=== PATIENT | female | born 1980 | race Caucasian/White ===

== ENCOUNTER 2020-05-26 09:50 | Outpatient (CLI) | payer OTHER, SELFPAY ==
--- NOTE | ~2020-05-26 | MM_ITS ---
EXAMINATION: MM screening kiana BI w kiersten HISTORY: Screening TECHNIQUE: Craniocaudal and mediolateral oblique 3-D tomosynthesis images were obtained and synthetic 2-D images were generated. CAD analysis was submitted and interpreted. COMPARISON: No prior mammogram is available for comparison at this institution. BREAST PARENCHYMAL COMPOSITION: The breasts are heterogenously dense, which may obscure small masses. FINDINGS: There are bilateral breast asymmetries. There are no suspicious calcifications or architectural technician ural distortion. IMPRESSION: 1. Bilateral breast asymmetries. 2. Additional mammographic views and possible breast ultrasound are recommended. BI-RADS Category 0: Incomplete: Needs additional imaging evaluation. Reviewed, dictated and finalized at location A. IMPRESSION: 1. Bilateral breast asymmetries. 2. Additional mammographic views and possible breast ultrasound are recommended . BI-RADS Category 0: Incomplete: Needs additional imaging evaluation.
== END 2020-05-26 09:51 | disposition home or self-care (01) ==
DX: Z12.31 Encounter for screening mammogram for malignant neoplasm of breast (principal)
CPT/HCPCS: 77063; 77067

== ENCOUNTER 2020-06-25 09:55 | Outpatient (CLI) | payer OTHER, SELFPAY ==
--- NOTE | ~2020-06-25 | MM_ITS ---
EXAMINATION: MM diagnostic kiana BI w kiersten HISTORY: Follow-up bilateral breast asymmetries TECHNIQUE: Additional 3-D tomosynthesis images of the breasts were performed and synthetic 2-D images were generated. CAD analysis was submitted and interpreted. High resolution bilateral complete breas t ultrasound was performed. COMPARISON: 05/26/2020 BREAST PARENCHYMAL COMPOSITION: The breasts are heterogenously dense, which may obscure small masses. FINDINGS: MAMMOGRAPHIC FINDINGS: There are no suspicious masses, calcifications or architectural distortion in either breast to sugges t malignancy. ULTRASOUND: Right breast ultrasound: At 10:00, 3 cm from the nipple, there is an oval hypoechoic mass with slightly irregular margins and internal echoes measuring 5 mm maximum dimension. No posterior features or internal vascularity. At 1 1:00, 2 cm from the nipple, there is an oval hypoechoic 5 mm mass without internal vascularity or pos terior features. In the subareolar location the right breast there is an oval hypoechoic mass measuri ng 6 mm with slightly irregular margins, no internal vascularity or posterior features. Left breast ultrasound: Oval hypoechoic mass at 3:00, 3 cm from the nipple measuring 4 mm with parallel orientation measuring 5 mm maximum dimension. No internal vascularity or posterior features. At 6:00, 4 cm from the nipple is a cluster of small cysts measuring 3 mm or less. At 2:00, 5 cm from the nipple, there is an oval hypoechoic mass measuring 3 mm with posterior acoustic enhancement. No internal vascularity. IMPRESSION: 1. Probable benign bilateral breast masses. 2. Recommend 6 month follow-up bilateral breast ultrasound BI-RADS Category 0: Incomplete: Needs additional imaging evaluation. Reviewed, dictated and finalized at location A.
--- NOTE | ~2020-06-25 | US_ITS ---
Please refer to diagnostic mammogram report dated 06/25/2020 for details. Reviewed, dictated and finalized at location A.
== END 2020-06-25 09:56 | disposition home or self-care (01) ==
DX: R92.2 Inconclusive mammogram (principal)
CPT/HCPCS: 76641; 77062; 77066; G0279

== ENCOUNTER 2020-07-14 06:54 | Outpatient (CLI) | payer OTHER, SELFPAY ==
--- NOTE | ~2020-07-14 | MR_ITS ---
EXAMINATION: foot LT wo con DATE: 07/14/2020 08:09 INDICATION: Erythema pain and swelling at the left great toe post injury 4 months prior. Abnormal x-r ay. TECHNIQUE: Magnetic resonance imaging (MRI) of the left fore/mid foot was performed without intraveno us contrast. Sequences included sagittal T1-weighted FSE, sagittal fluid sensitive FSE STIR, coronal PD-weighted FS FSE, coronal T1-weighted FSE, axial PD-weighted FS FSE, and axial PD-weighted FSE. COMPARISON: None FINDINGS: Bone alignment is normal. No fracture. Normal marrow signal with no reactive edema, osteonecrosis or other pathologic marrow replacing process. The Lisfranc ligament and the collateral ligament complexe s at the metatarsophalangeal and interphalangeal joints are normal. The visualized portions of the fl exor and extensor tendons are normal. Normal small sesamoid bone is seen plantar to the first interph alangeal joint at the distal aspect of the flexor hallucis longus tendon. No abnormal signal to sugge st sesamoiditis. Mild osteoarthritis at the first metatarsophalangeal joint and at the second, third and fourth tarsal metatarsal joints. No joint effusions or other abnormal fluid collections. Soft tis sues are unremarkable with no edema or asymmetric muscular atrophy. IMPRESSION: 1. 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 No fractu re, osteomyelitis or other etiology identified for reported pain and swelling at the left great toe. Reviewed, dictated and finalized at location B. IMPRESSION: 1. Mild osteoarthritis at the first metatarsophalangeal and a few tarsal metata rsal joints. No fracture, osteomyelitis or other etiology identified for report ed pain and swelling at the left great toe.
== END 2020-07-14 06:55 | disposition home or self-care (01) ==
DX: R93.89 Abnormal findings on diagnostic imaging of other specified body structures (principal)
CPT/HCPCS: 73718

== ENCOUNTER 2021-02-11 09:46 | Outpatient (CLI) | payer OTHER, SELFPAY ==
--- NOTE | ~2021-02-11 | MMUS_ITS ---
EXAMINATION: MM diagnostic kiana BI w kiersten, US breast BI limited HISTORY: Six-month follow-up of probable benign bilateral breast masses TECHNIQUE: ML, MLO and craniocaudal full field and spot 3-D tomosynthesis images of both breasts were performed and synthetic 2-D images were generated. CAD analysis was submitted and interpreted. High resolution limited bilateral follow-up breast ultrasound was performed. COMPARISON: 06/25/2020 bilateral diagnostic digital mammogram and bilateral complete breast ultrasound examination 05/26/2020 bilateral digital screening mammogram BREAST PARENCHYMAL COMPOSITION: There are scattered areas of fibroglandular density. FINDINGS: MAMMOGRAPHIC FINDINGS: No interval suspicious mass or architectural distortion or significant new or developing density or a ny malignant calcification, skin thickening or retraction of either breast is evident. ULTRASOUND: Right breast: 10:00 3 cm from nipple: Hypoechoic 3.6 x 6.3 x 4.6 mm parallel circumscribed lesion without internal vascularity or posterior shadowing 11:00 2 cm from nipple: Parallel circumscribed hypoechoic 1.8 x 2.8 x 3.3 mm lesion without suspiciou s shadowing Subareolar area: 2.8 x 2.6 x 3.1 mm hypoechoic area without internal vascularity or posterior shadowi ng Left breast: 2:00 5 cm from nipple: 2.4 x 3 x 3.3 mm hypoechoic lesion without internal vascularity or posterior s hadowing 3:00 3 cm from nipple: Parallel circumscribed hypoechoic 2.7 x 4 x 4.2 mm lesion without internal vas cularity or posterior shadowing 6:00 4 cm from nipple: Septated 3 x 3.6 x 4.2 mm cyst without internal vascularity or posterior shado wing 8:00 3 cm from nipple: 3 x 2 x 1.7 mm cyst IMPRESSION: 1. No mammographic evidence of malignancy or significant change since 07/05/2020 2. Routine annual mammographic screening is recommended. BI-RADS Category 2: Benign finding(s). Reviewed, dictated and finalized at location A. IMPRESSION: 1. No mammographic evidence of malignancy or significant change since 0 2. Routine annual mammographic screening is recommended. BI-RADS Category 2: Benign finding(s).
== END 2021-02-11 09:47 | disposition home or self-care (01) ==
LOC: CHSIMG 09:48
PROVIDERS: PCP Family Medicine
DX: R92.2 Inconclusive mammogram (principal)
CPT/HCPCS: 76642; 77062; 77066; G0279

== ENCOUNTER 2021-03-10 07:43 | Outpatient (CLI) | payer OTHER, SELFPAY ==
--- NOTE | ~2021-03-10 | CT_ITS ---
EXAMINATION: CT soft tissue neck w con DATE: 03/10/2021 08:17 INDICATION: Lymphadenopathy of the head and neck. TECHNIQUE: Computed tomography (CT) of the neck was performed with 75 mL Omnipaque-350 intravenous co ntrast. Automated exposure control and iterative reconstruction technique were employed. The dose-margarito gth product was 359.09 mGy-cm. COMPARISON: None FINDINGS: There is a 2.8 x 2.5 cm right mid internal jugular chain lymph node. A skin marker overlies this area. The pharyngeal mucosal space is unremarkable. There is no visible plaque in the proximal internal carotid arteries. There is mild cervical spondylosis. IMPRESSION: 1. Enlarged right mid internal jugular chain lymph node suspicious for metastatic disease or lymphoma . Ultrasound-guided core needle biopsy is recommended. Reviewed, dictated and finalized at location A. IMPRESSION: 1. Enlarged right mid internal jugular chain lymph node suspicious for metastat ic disease or lymphoma. Ultrasound-guided core needle biopsy is recommended.
== END 2021-03-10 07:44 | disposition home or self-care (01) ==
LOC: CHSIMG 07:44
PROVIDERS: PCP Family Medicine; Visit Provider Family Medicine
DX: R59.1 Generalized enlarged lymph nodes (principal)
CPT/HCPCS: 70491; Q9967

== ENCOUNTER 2021-06-13 07:57 | Outpatient (RCR) | payer OTHER, SELFPAY ==
--- NOTE | 2021-06-13 09:06 | PTOPEVAL ---
Thank you for referring Marianna Bernal to [facility].? The patient is scheduled to be seen for therapy? ____x/week for ___ weeks. Please review, sign, date and return this plan of care JENAE. I agree with and certify that the following plan of care is medically necessary. Referring Physician Date Admitting Provider: Attending Provider: Kamran Jacobo, MD Referring Provider: *PT Outpatient Evaluation Start: 06/13/21 08:11 Freq: Status: Active Protocol: Document 06/13/21 08:10 [facility] (Rec: 06/13/21 08:59 [facility] [id number]) Therapy Assessment Status Assessment Status Assessment Status Evaluation Evaluation Information Problem Diagnosis R shoulder pain, neck pain Onset 04/22/21 Additional Evaluation Detail quick dash = 56% functionally declined NDI = 28% functionally declined Subjective Information patient reports she has had Query Text:As Reported By Patient/ pain in the R shoulder and Family neck since her surgery on 03/07. 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 she reports the tumor was 1in. she reports the tumor is benign. she reports since her surgery, she has pain moving the R arm away from her body and decreased ability to reach above shoulder level. she reports during surgery she was laying on her L side. she reports she is unable to put her hair in a ponytail, put a shirt on and off, reaching up into a cabinet, and vaccuming. 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 Prior Level of Function Comments Additional Prior Level of Function she reports prior to surgery, Comments she was having no issues with the R side neck and the shoulder. Pain Assessment Timing of Pain Assessment Timing of Pain Assessment Assessment Pain Scale Pain Scale Used Numeric (1 - 10) Self Report Pain Assessment Right Shoulder(s) Reported Pain Level 1 Pain Description Dull Pain Frequency Acute,Continuous Greatest Pain Intensity 7 Pain Score Pain Score 1: Self Report Interventio
--- NOTE | 2021-07-12 09:12 | PTOPEVAL ---
Thank you for referring Marianna Bernal to [facility].? The patient is scheduled to be seen for therapy? ____x/week for ___ weeks. Please review, sign, date and return this plan of care JENAE. I agree with and certify that the following plan of care is medically necessary. Referring Physician Date Admitting Provider: Attending Provider: Kamran Jacobo, MD Referring Provider: *PT Outpatient Evaluation Start: 06/13/21 08:11 Freq: Status: Active Protocol: Document 07/12/21 08:10 [facility] (Rec: 07/12/21 09:10 [facility] [id number]) Therapy Assessment Status Assessment Status Assessment Status Re-evaluation Evaluation Information Problem Diagnosis R shoulder pain, neck pain Onset 04/22/21 Additional Evaluation Detail quick dash = 47% functionally declined Subjective Information patient reports she feels her Query Text:As Reported By Patient/ pain is coming from the knot Family in her R shoulder. she reports she has been evaluated by a few different doctors who have concluded no similarities of this issue to her previous issue with her benign tumor. she reports she is unable to put much weight through her R arm to get out of a chair, and lifting up overhead/over shoulder level is painful. Pain Assessment Timing of Pain Assessment Timing of Pain Assessment Assessment Pain Scale Pain Scale Used Numeric (1 - 10) Self Report Pain Assessment Right Shoulder(s) Reported Pain Level 3 Greatest Pain Intensity 7 Pain Score Pain Score 3: Self Report Interventions Used Interventions Used By Clinicians Activity or ADL's,Education, Exercise Upper Extremity Range of Motion Scapular/ Shoulder Range of Motion Right Shoulder Flexion - Active 128 Shoulder Flexion - Passive 165 Shoulder Medial Rotation - Active 75 Shoulder Lateral Rotation - Active 100 Upper Extremity Muscle Strength Testing Scapular/Shoulder Right Shoulder Flexion Strength 3+ Fair + Shoulder Abduction Strength 3+ Fair + Shoulder Medial Rotation Strength 4 Good Shoulder Lateral Rotation Strength 3+ Fair + Palpation Assessment Palpation Palpation patient presents with palpable superior angle of the R scapular. she reports pain in this area with palpation.
--- NOTE | 2021-08-09 15:00 | PCPTNOTE ---
Addendum entered by BISHOP Leslie, PT 08/09/21 15:03: as of this date, she will be dc'd from skilled PT and all progress towards goals will be taken from her most recent evaluation/note. JOZEF Original Note: 08/09/21 - patient has not been to therapy in several weeks. as of this date, all progress towards goals will be taken from her most recent evaluation/note. JOZEF
== END 2021-07-12 09:02 | disposition home or self-care (01) ==
LOC: CHSPT 07:57
PROVIDERS: PCP Family Medicine; Visit Provider Otolaryngology
DX: M25.511 Pain in right shoulder (principal); G89.29 Other chronic pain; M54.2 Cervicalgia
CPT/HCPCS: 97014; 97110; 97140; 97161; G0283

== ENCOUNTER 2022-02-14 08:33 | Outpatient (CLI) | payer OTHER, SELFPAY ==
--- NOTE | ~2022-02-14 | MM_ITS ---
EXAMINATION: MM screening kiana BI w kiersten HISTORY: Screening mammogram TECHNIQUE: Craniocaudal and mediolateral oblique 3-D tomosynthesis images were obtained and synthetic 2-D images were generated. CAD analysis was submitted and interpreted. COMPARISON: 02/11/2021 bilateral diagnostic mammogram and Limited bilateral breast ultrasound 06/25/2020 bilateral diagnostic mammography and bilateral complete breast ultrasound 05/26/2020 bilateral screening mammogram BREAST PARENCHYMAL COMPOSITION: There are scattered areas of fibroglandular density. FINDINGS: There is no evidence of suspicious mass, calcification, or architectural distortion to sugg est malignancy in either breast. There has been no suspicious interval change. IMPRESSION: 1. No mammographic evidence of malignancy. 2. Recommend routine screening mammography in one year. BI-RADS Category 1: Negative Reviewed, dictated and finalized at location A.
== END 2022-02-14 08:34 | disposition home or self-care (01) ==
LOC: CHSIMG 08:36
PROVIDERS: PCP Family Medicine; Visit Provider Obstetrics & Gynecology
DX: Z12.31 Encounter for screening mammogram for malignant neoplasm of breast (principal)
CPT/HCPCS: 77063; 77067

== ENCOUNTER 2022-07-05 16:42 | Outpatient (CLI) | payer OTHER, SELFPAY ==
[2022-07-05 17:02] LABS: Basophils Absolute Auto 0.07 K/mm3 (0.00-0.10); Basophils Percent Auto 1.1 % (0.0-1.0); Eosinophils Absolute Auto 0.11 K/mm3 (0.02-0.50); Eosinophils Percent Auto 1.8 % (1.0-6.0); Immature Granulocyte Absolute 0.02 K/mm3 (0.00-0.00); Immature Granulocyte Percent A 0.3 % (0.0-0.0); Lymphocytes Absolute Auto 1.93 K/mm3 (1.10-4.50); Lymphocytes Percent Auto 31.3 % (18.0-42.0); Mean Corpuscular HGB Conc 33.3 g/dL (32.0-36.0); Mean Corpuscular Hemoglobin 30.8 pg (27.0-31.0); Mean Corpuscular Volume 92.4 fL (78.0-102.0); Mean Platelet Volume 9.2 fl (9.2-11.8); Monocytes Absolute Auto 0.39 K/mm3 (0.10-0.90); Monocytes Percent Auto 6.3 % (2.0-11.0); Neutrophils Absolute Auto 3.6 K/mm3 (1.7-7.2); Neutrophils Percent Auto 59.2 % (50.0-70.0); Platelet Count Result 437 K/mm3 (150-420); Red Blood Count 4.22 M/mm3 (4.20-5.40); Red Cell Distribution Width 12.5 % (11.6-14.4); White Blood Count 6.2 K/mm3 (4.8-10.8)
[2022-07-05 17:20] LABS: INR 0.9; Partial Thromboplastin Time 26.7 SEC (23.90-30.70); Prothrombin Time 10.4 Seconds (9.50-12.10)
[2022-07-05 17:39] LABS: Alanine Aminotransferase 15 U/L (14-59); Albumin Level 3.7 g/dL (3.4-5.0); Alkaline Phosphatase 54 U/L (46-116); Anion Gap 10 mmol/L (8-16); Aspartate Amino Transferase 13 U/L (15-37); Bilirubin,Total 0.2 mg/dL (0.00-1.00); Blood Urea Nitrogen 26 mg/dL (7-18); Calcium 8.8 mg/dL (8.5-10.1); Carbon Dioxide 26 mmol/L (21-32); Chloride 103 mmol/L (98-108); Estimated Glomerular Filt Rate 48; Glucose 99 mg/dL (70-99); Osmolality Calculated 292 mOsm/kg (285-295); Sodium 139 mmol/L (136-145); Total Protein 7.8 g/dL (6.4-8.2)
== END 2022-07-05 16:43 | disposition home or self-care (01) ==
LOC: CHSLAB 16:46
PROVIDERS: PCP Family Medicine
DX: R22.1 Localized swelling, mass and lump, neck (principal)
CPT/HCPCS: 36415; 80053; 85025; 85610; 85730

== ENCOUNTER 2023-11-08 16:02 | Outpatient (RCR) | payer OTHER, SELFPAY ==
--- NOTE | 2023-11-01 17:55 | PCPTNOTE ---
11/01/23: Pt cancelled initial eval due to being sick. -Kamilla Churchill, PT
--- NOTE | 2023-11-08 17:17 | OPREHPOC ---
Outpatient Therapy Plan of Care This is a Multidisciplinary Plan of Care that may contain components documented by all disciplines (PT, OT, and ST.) PT Problem 1 PT Problem #1 Knowledge Deficit PT Goal 1 Goal Patient to demonstrate independence with HEP Target Visit 3 PT Problem 2 PT Problem #2 Pain PT Goal 1 Goal Patient to report highest pain at 2/10 Target Visit 6 PT Problem 3 PT Problem #3 Impaired Range of Motion PT Goal 1 Goal Patient to demonstrate ability to reach to 160 deg of flexion and ability to reach to bra line to return to dressing at PLOF Target Visit 6 PT Problem 4 PT Problem #4 Impaired Strength PT Goal 1 Goal Patient to demonstrate 5/5 strength of the L shoulder to return to house hold tasks at PLOF Target Visit 6 PT Problem 5 PT Problem #5 Impaired Functional Mobil PT Goal 1 Goal 1. patient to report ability to dress with no increase in pain 2. patient to demonstrate less than 20% on Quick Dash Target Visit 6
--- NOTE | 2023-11-08 17:17 | PTOPEVAL1 ---
Assessment and note entered by Sarahi Liu DPT Evaluation Information Assessment Status Evaluation Diagnosis L shoulder pain Onset 10/30/23 Subjective Information Patient reports in June she had an onset of L shoulder pain with no injury. She had an injection in Sep that gave relief for a few weeks but pain returned. She then had another injection on and reports she feels a little bit better. She had an x-ray that showed AC joint degeneration and MD told her he does not think it is a large tear. Patient reports reaching behind her back to put her bra, putting on her coat and reaching across her body all increase her pain. She reports pain is at the lateral shoulder. 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 She denies previous shoulder pain. Reported Pain Level Pain Score 0: Self Report Assessment PT Clinical Summary Mrs. Bernal is a 42 year old female who presents to PT with L shoulder pain. Patient demonstrates decreased L shoulder ROM, decreased L shoulder strength, and tenderness to the posterior RTC impairing her ability to dress, reach across her body and complete house hold tasks. She would benefit from skilled PT to address impairments and return to PLOF. Plan of Care Interventions Electrical Stimulation,Hot Pack/Cold Pack,Manual Therapy,Neuro Re-education,Patient/Caregiver Educati,Therapeutic Activities,Therapeutic Exercise PT Services Indicated Yes Treatment Frequency and 1x weekly for 6 visits Duration These treatments will address the objective and functional deficits as defined above. The patient will be advanced safely and appropriately in order for the patient to progress towards his/her prior level of function. Additional exercises will be introduced and as well as a comprehensive home exercise program upon discharge, if needed, ?to ensure carryover of functional gains achieved in the clinic. This treatment plan has been reviewed and agreement upon by the patient.
[2024-01-25 08:00] VITALS: BP_SYST 75
--- NOTE | 2024-01-25 09:16 | OPREHPOC ---
Outpatient Therapy Plan of Care This is a Multidisciplinary Plan of Care that may contain components documented by all disciplines (PT, OT, and ST.) PT Problem 1 PT Problem #1 Knowledge Deficit PT Goal 1 Goal Patient to demonstrate independence with HEP Target Visit 6 PT Problem 2 PT Problem #2 Pain PT Goal 1 Goal Patient to report highest pain at 2/10 Target Visit 8 PT Problem 3 PT Problem #3 Impaired Range of Motion PT Goal 1 Goal Patient to demonstrate ability to reach to 160 deg of flexion and ability to reach to bra line to return to dressing at PLOF Target Visit 8 PT Problem 4 PT Problem #4 Impaired Strength PT Goal 1 Goal Patient to demonstrate 5/5 strength of the L shoulder to return to house hold tasks at PLOF Target Visit 8 PT Problem 5 PT Problem #5 Impaired Functional Mobil PT Goal 1 Goal 1. patient to report ability to dress with no increase in pain 2. patient to demonstrate less than 20% on Quick Dash Target Visit 8
--- NOTE | 2024-01-25 09:16 | PTOPREEVAL ---
Assessment and note entered by JT File, PT Evaluation Information Assessment Status Re-evaluation Diagnosis L shoulder pain Onset 10/30/23 Subjective Information patient has been away from skilled PT for about 50 days. she reports she had an MRI of the L shoulder. MRI report shows tendinopathy and micro tearing of the supraspinatus mm. she has gotten a 2nd opinion from Dr. Ingram who believes she is suffering from a frozen shoulder. she had an injection to the L shoulder and does feel better since. she reports she follows up with Dr. Ingram on February 20. Reported Pain Level Pain Score 2: Self Report Assessment PT Clinical Summary mrs. carlson returns to skilled PT for continued treatment of the L shoulder. she has been away for a bit of time getting an MRI and 2nd opinion. she presents now with a diagnosis of tendinopathy and frozen shoulder. she displays decreased L shoulder rom, strength, and has pain with all movement. she would benefit from continued skilled PT to address her objective/functional deficits to return to her prior level functional activity performance and quality of life. she is limited by availability to attend skilled PT through the week, and will only be able to attend 1x weekly. Plan of Care Interventions Electrical Stimulation,Hot Pack/Cold Pack,Manual Therapy,Neuro Re-education,Patient/Caregiver Educati,Therapeutic Activities,Therapeutic Exercise PT Services Indicated Yes Treatment Frequency and continue skilled PT 1x weekly for 4 more visits (8 Duration total) These treatments will address the objective and functional deficits as defined above. The patient will be advanced safely and appropriately in order for the patient to progress towards his/her prior level of function. Additional exercises will be introduced and as well as a comprehensive home exercise program upon discharge, if needed, ?to ensure carryover of functional gains achieved in the clinic. This treatment plan has been reviewed and agreement upon by the patient.
== END 2024-02-04 08:02 | disposition still patient (30) ==
LOC: CHSPT 16:02
PROVIDERS: Visit Provider Orthopaedic Surgery
DX: M75.82 Other shoulder lesions, left shoulder (principal)
CPT/HCPCS: 97014; 97110; 97140; 97161; G0283

== ENCOUNTER 2024-02-12 08:06 | Outpatient (RCR) | payer OTHER, SELFPAY ==
[2024-02-12 08:03] VITALS: BP_SYST 75
--- NOTE | 2024-02-19 12:59 | OPREHPOC ---
Outpatient Therapy Plan of Care This is a Multidisciplinary Plan of Care that may contain components documented by all disciplines (PT, OT, and ST.) PT Problem 1 PT Problem #1 Knowledge Deficit PT Goal 1 Goal Patient to demonstrate independence with HEP Target Visit 6 Progress Met PT Problem 2 PT Problem #2 Pain PT Goal 1 Goal Patient to report highest pain at 2/10 Target Visit 8 Progress Not Met PT Problem 3 PT Problem #3 Impaired Range of Motion PT Goal 1 Goal Patient to demonstrate ability to reach to 160 deg of flexion and ability to reach to bra line to return to dressing at PLOF Target Visit 8 Progress Not Met PT Problem 4 PT Problem #4 Impaired Strength PT Goal 1 Goal Patient to demonstrate 5/5 strength of the L shoulder to return to house hold tasks at PLOF Target Visit 8 Progress Not Met PT Problem 5 PT Problem #5 Impaired Functional Mobil PT Goal 1 Goal 1. patient to report ability to dress with no increase in pain 2. patient to demonstrate less than 20% on Quick Dash Target Visit 8 Progress Not Met
--- NOTE | 2024-02-19 13:00 | PTOPPROG ---
Assessment and note entered by Kamilla Churchill, PT Evaluation Information Assessment Status Progress Diagnosis L shoulder pain Onset 10/30/23 Subjective Information Marianna reports her right shoulder pain has improved overall since initiating PT but she continues to have difficulty trying to put her hair up and washing her hair. She notes pain can vary from 0 to 6/10. She will see Dr. Ingram on then will be out of town of vacation. Assessment PT Clinical Summary Marianna Bernal has completed 8 skilled PT visits for left shoulder pain. She is reporting improved symptoms but still has difficulty with overhead tasks like washing and fixing her hair. She demonstrates improved left shoulder AROM but continues to demonstrate functional deficits in flexion, abduction, and external rotation. She will continue to benefit from skilled PT to further address functional ROM and strength. Plan of Care Interventions Electrical Stimulation,Patient/Caregiver Educati, Therapeutic Exercise PT Services Indicated Yes Treatment Frequency and 2 times a week for 8 visits Duration These treatments will address the objective and functional deficits as defined above. The patient will be advanced safely and appropriately in order for the patient to progress towards his/her prior level of function. Additional exercises will be introduced and as well as a comprehensive home exercise program upon discharge, if needed, ?to ensure carryover of functional gains achieved in the clinic. This treatment plan has been reviewed and agreement upon by the patient.
--- NOTE | 2024-05-13 08:20 | PCPTNOTE ---
patient did not return for new POC follow ups
== END 2024-02-19 08:45 | disposition home or self-care (01) ==
LOC: CHSPT 08:06
PROVIDERS: Visit Provider Orthopaedic Surgery
DX: M75.82 Other shoulder lesions, left shoulder (principal)
CPT/HCPCS: 97014; 97110; G0283

== ENCOUNTER 2024-05-09 12:37 | Outpatient (CLI) | payer OTHER, SELFPAY ==
[2024-05-09 14:01] LABS: SARS-CoV-2 RNA PCR Negative (Negative)
== END 2024-05-09 12:38 | disposition home or self-care (01) ==
LOC: CHSLAB 12:41
PROVIDERS: PCP Anesthesiology
DX: Z01.818 Encounter for other preprocedural examination (principal)
CPT/HCPCS: 87635

== ENCOUNTER 2024-10-02 09:22 | Outpatient (CLI) | payer OTHER, SELFPAY ==
[2024-10-02 09:37] LABS: Basophils Absolute Auto 0.08 K/mm3 (0.00-0.10); Basophils Percent Auto 1.4 % (0.0-1.0); Eosinophils Absolute Auto 0.07 K/mm3 (0.02-0.50); Eosinophils Percent Auto 1.2 % (1.0-6.0); Hemoglobin 13.3 g/dL (12.0-15.0); Immature Granulocyte Absolute 0.02 K/mm3 (0.00-0.00); Immature Granulocyte Percent A 0.3 % (0.0-0.0); Lymphocytes Absolute Auto 1.28 K/mm3 (1.10-4.50); Lymphocytes Percent Auto 21.7 % (18.0-42.0); Mean Corpuscular HGB Conc 33.3 g/dL (32-36); Mean Corpuscular Hemoglobin 30.4 pg (27.0-31.0); Mean Corpuscular Volume 91.5 fL (78.0-102.0); Mean Platelet Volume 8.8 fl (9.2-11.8); Monocytes Absolute Auto 0.44 K/mm3 (0.10-0.90); Monocytes Percent Auto 7.5 % (2.0-11.0); Neutrophils Percent Auto 67.9 % (50.0-70.0); Platelet Count Result 439 K/mm3 (150-420); Red Blood Count 4.37 M/mm3 (4.20-5.40); Red Cell Distribution Width 11.9 % (11.6-14.4); White Blood Count 5.9 K/mm3 (4.8-10.8)
[2024-10-02 10:11] LABS: Alanine Aminotransferase 16 U/L (14-59); Albumin Level 3.9 g/dL (3.4-5.0); Alkaline Phosphatase 45 U/L (46-116); Anion Gap 10 mmol/L (4-12); Aspartate Amino Transferase 10 U/L (15-37); Bilirubin,Total 0.5 mg/dL (0.00-1.00); Blood Urea Nitrogen 17 mg/dL (7-18); Calcium 9.3 mg/dL (8.5-10.1); Carbon Dioxide 26 mmol/L (21-32); Chloride 104 mmol/L (98-108); Cholesterol 226 mg/dL (0-200); Estimated Glomerular Filt Rate > 60; Glucose 89 mg/dL (70-99); HDL Direct 58 mg/dL (40-60); LDL Cholesterol Calculated 148 mg/dL (<130); Osmolality Calculated 290 mOsm/kg (285-295); Potassium 5.2 mmol/L (3.5-5.1); Sodium 140 mmol/L (136-145); Total Protein 6.8 g/dL (6.4-8.2); Triglycerides 98 mg/dL (0-150)
[2024-10-02 10:12] LABS: Thyroid Stimulating Hormone Reflex 2.81 u/IU/mL (0.36-3.74)
[2024-10-03 08:03] LABS: Vitamin D 25 Hydroxy 31 ng/mL (30-100)
== END 2024-10-02 09:23 | disposition home or self-care (01) ==
LOC: CHSLAB 09:24
PROVIDERS: PCP Family Medicine; Visit Provider Family Medicine
DX: E55.9 Vitamin D deficiency, unspecified (principal); R53.83 Other fatigue; E78.2 Mixed hyperlipidemia
CPT/HCPCS: 36415; 80053; 80061; 82306; 84443; 85025

== ENCOUNTER 2024-10-09 07:47 | Outpatient (CLI) | payer OTHER, SELFPAY ==
[2024-10-09 08:29] LABS: Anion Gap 12 mmol/L (4-12); Blood Urea Nitrogen 16 mg/dL (7-18); Calcium 9.1 mg/dL (8.5-10.1); Carbon Dioxide 24 mmol/L (21-32); Chloride 104 mmol/L (98-108); Estimated Glomerular Filt Rate 58; Glucose 90 mg/dL (70-99); Osmolality Calculated 291 mOsm/kg (285-295); Potassium 4.6 mmol/L (3.5-5.1); Sodium 140 mmol/L (136-145)
--- OUTSIDE RECORDS SUMMARY | 2024-10-10 03:49 | XMS_ITS | Encounter Summary ---
Author Organization [facility] Healthcare Address [address] [place] [address] Care Team Providers Care Analytical Laboratory Technician Name Role Phone Unavailable Primary Care Provider Unavailabl e Reason for Visit * Diagnostic Imaging (Routine) - Closed Specialty Diagnoses / Procedures Referred By Ganga t Referred To Contact Procedures Breast Imaging US Outside Reference Referral, Self Referral ID Status Reason Start Date Expiration Date Visits Re quested Visits Authorized [id number] Closed 10/19/2022 11/18/2023 1 1 Encounter Details Date Type Department Care Team (Late st Contact Info) Description 06/25/2020 12:05 AM CDT Hospital Encounter [facility] [address] [place] [id number] Social History Tobacco Use Types Packs/Day Years Used Date Smoking Tobacco: Never Cigarettes Passive Smoke Exposure: Never Smokeless Tobacco: Never AUDIT-C Answer Date Recorded Q1: How often do you have a drink containing alc ohol? Monthly or less 07/25/2023 Q2: How many drinks containi ng alcohol do you have on a typical day when you are drinking? 1 or 2 07/25/2023 Q3: How often do you have si x or more drinks on one occasion? Never 07/25/2023 PHQ-2 Answer Date Recorded PHQ-2 Total Score (If total score is 3 or more points, staff should administer the PHQ-9) 0 04/29/2024 Personal Safety Answer Date Recorded Have you ever been in or are you currently in a harmful physical or emotional relationship or is someone making you feel afraid or unsafe? 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 ??There will be no report generated by a [facility] Radiologist. Narrative [facility] - 10/19/2022 10:19 AM PUBLIC RELATIONS MANAGER EXAMINATION: ??Images For Reference Purposes Only us Self Referral IMG MAMMO PROCEDURES Final Resul t [facility] documented in this encounter Visit Diagnoses Not on filedocumented in this encounter
--- OUTSIDE RECORDS SUMMARY | 2024-10-10 03:49 | XMS_ITS | Encounter Summary ---
Author Organization [facility] Healthcare Address [address] [place] [address] Care Team Providers Care Clinical Provider Trainer Name Role Phone Unavailable Primary Care Provider Unavailabl e Reason for Visit * Diagnostic Imaging (Routine) - Closed Specialty Diagnoses / Procedures Referred By Ganga t Referred To Contact Procedures Breast Imaging Diagnostic Outside Reference Referral, Self Referral ID Status Reason Start Date Expiration Date Visits Re quested Visits Authorized [id number] Closed 10/19/2022 11/18/2023 1 1 Encounter Details Date Type Department Care Team (Late st Contact Info) Description 02/11/2021 Hospital Encounter [facility]) [address] [place] [id number] Social History Tobacco Use Types Packs/Day Years [...] 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 ??There will be no report generated by a [facility] Radiologist. Narrative [facility] - 10/19/2022 10:19 AM FARM MANAGER EXAMINATION: ??Images For Reference Purposes Only us Self Referral IMG MAMMO PROCEDURES Final Resul t [facility] documented in this encounter Visit Diagnoses Not on filedocumented in this encounter
--- OUTSIDE RECORDS SUMMARY | 2024-10-10 03:49 | XMS_ITS | Clinical Summary ---
Author Organization [facility] Address [address] [place] [address] Care Team Providers Care Highway Maintenance Worker Name Role Phone Unavailable Primary Care Provider Unavailabl e Source Comments [facility],non-owned Affiliates and Associated Physician Practices is amultiple site organization consisting of ambulatory clinics and hospital sitesin [place], [place], [place] and [place]. This disclosure is being madepursuant to the Care Everywhere program and may not contain all information available regarding this patient. Last updated 18.[facility] Oculo Therapy Social History Tobacco Use Types Packs/Day Years Used Date Smoking Tobacco: Never Assessed Sex and Gender Information Value Date Recorded Sex Assigned at Not on file Gender Identity Not on file Sexual Orientation Not on file Plan of Treatment Health Maintenance Due Date Last Done Comments LIPID TESTING 1980 MAMMOGRAM 1980 PAP SMEAR 1980 HIV SCREENING 11/14/1994 HEPATITIS C SCREENING 11/10/1997 DTAP/TDAP/TD VACCINES (1 - Tdap) 11/14/1998 HEPATITIS B VACCINE (1 of 3 - 19+ 3-dose series) 11/14/1998 COVID-19 VACCINE ( - 2023-2 5 season) 2024 INFLUENZA VACCINE (#1) 2024 DEPRESSION SCREENING 09/17/2024 ZOSTER VACCINE (1 of 2) 11/14/2029 HIB VACCINE Aged Out No longer eligi ble based on patient's age to complete this topic HPV VACCINE Aged Out No longer eligi ble based on patient's age to complete this topic MENINGOCOCCAL (Group B) VACCINE Aged Out No longer eligible based on patient's age to complete this topic MENINGOCOCCAL VACCINE Aged Out No royce jose manuel eligible based on patient's age to complete this topic PNEUMOCOCCAL VACCINE Aged Out No long er eligible based on patient's age to complete this topic Marianna Bernal Personal/Famil y Self 1980
--- OUTSIDE RECORDS SUMMARY | 2024-10-10 03:49 | XMS_ITS | Referral Summary ---
Author Organization [facility] [employer] Address [address] [place] [address] Care Team Providers Care Bottom Sprayer Name Role Phone Kamran Jacobo MD Unavailable [phone] Doroteo Bowden MD Unavailable Hermila Glynn MD PhD Unavailable + Tiffany Martínez MD Unavailable [phone] Teri Barlow MD Unavailable [phone] Chapo Desai MD Primary Care Provi chidi Allergies No known active allergies Medications magnesium oxide 400 mg magnesium capsuleIndication s:hypomagnesemia Take 400 mg by mouth nightly 7 Active ZOLMitriptan (ZOMIG) 5 mg nasal solution Administer 1 spray into one nostril as needed for migraine 0 Active valACYclovir (VALTREX) 500 mg tabletIndications :Skin/Soft Tissue Infection Take 1 tablet (500 mg total) by mouth as needed 8 Active docusate sodium (STOOL SOFTENER ORAL)Indications: constipation Take 1 tablet/capsule by mouth every morning Active levonorgestrel & ethinyl estradiol (AMETHIA) 0.15 mg-30 mcg tablets,dose pack,3 monthIndications: Contraception Take 1 tablet by mouth bulk sealer before breakfast Active tirzepatide (Mounjaro) 10 mg/0.5 mL pen injectorIndicatio ns:wt loss Inject 110 mg under the skin once a week Wed 3 Active ubrogepant (Ubrelvy) 100 mg tablet Take 1 tablet (100 mg total) by mouth as needed for migraine 2 Active Qulipta 60 mg tablet 4 Active lidocaine, PF, 20 mg/mL (2 %) injection Inject 1 mL (20 mg total) into the skin daily as needed 4 Active rhubarb root extract (ESTROVEN CMPLT MENOPAUSE RLF ORAL) Active Active Problems Problem Noted Date Diagnosed Date Preoperative evaluation to stormy giordanoe out surgical contraindication 04/29/2024 Schwannoma of nerve of neck 10/10/2022 Neck mass 04/05/2021 Overview (04/05/2021): Added automatically from request for surgery [id number] 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 Lymphadenopathy of head and neck 03/08/2021 Chronic migraine without aura 03/06/2019 Overview (05/03/2022): Last Assessment & Plan: See neurology Oral contraceptive use 02/08/2018 Overview (07/25/2023): Encounter for surveillance of contraceptive pills; Severity: Moderate Progress: Stable Added By: Kamilla Parrish Add to Current Problems: YES ProblemStatus: Current Mixed hyperlipidemia 01/01/2018 Obesity 12/28/2017 Headache, menstrual migraine 12/14/2016 Overview (05/03/2022): Description: sees neuro Weight gain 12/14/2016 Irritable bowel syndrome with constipation 09/15 Immunizations Name Administration Dates Next Due Influenza, Unspecified 07/10/2023(Deferred: Radha ent Refused) Moderna SARS-CoV-2 Monovalen t Vaccination (12+ YRS) 12/31/2020,12/03/2020 Sars-CoV-2, Unspecified 12/03/2020 Tdap 03/08/2021,02/04/2010 Social History Tobacco Use Types Packs/Day Years Used Date Smoking Tobacco: Never Cigarettes Passive Smoke Exposure: Never Smokeless Tobacco: Never Tobacco Cessation:Counseling Given: Not Answered AUDIT-C Answer Date Recorded Q1: How often [...] 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 on file Not on file Last Filed Vital Signs Vital Sign Reading Time Taken Comments Blood Pressure 110/80 04/29/2024 8:08 AM CDT Pulse 80 04/29/2024 8:08 AM CDT Temperature 36.2 ??C (97.2 ??F) 04/29/2024 8:08 AM CD T Respiratory Rate 16 07/25/2023 3:25 PM SUPERVISOR METAL [employer]ANGING Oxygen Saturation 100% 04/29/2024 8:08 AM CDT Inhaled Oxygen Concentration - - Weight 70.2 kg (154 lb 11.2 oz) 04/29/2024 8:08 AM CDT Height 167.6 cm (5' 5.98 ) 04/29/2024 8:08 AM CD T Body Mass Index 24.98 04/29/2024 8:08 AM CDT Plan of Treatment Not on file Medical Devices Implanted Type Area Superintendent Terminal Device Identifier Shelf Expiration Date Model / Serial / Lot Bottom Permanent Retainer-09/17/18 98 Implanted:09/17 (Quantity not on file) N/A: Mouth Procedures Procedure Name Priority Date/Time Associated Diagnosis Comments SCREENING MAMMOGRAM BILATERAL W RAHEEL Schedule Routine, Read Routine (OP Routine) 12/25/2023 8:21 AM CDT Screening mammogram, encounter for from Last 3 Months or Most Recently Relevant to Health Maintenance Results * Screening Mammogram Bilateral W Raheel (12/25/2023 8:21 AM CDT) Anatomical Region Laterality Modality Breast Bilateral Mammography Narrative 12/25/2023 2:27 PM CDT Mammogram Technique: Bilateral Digital Breast Tomosynthesis, Bilateral C-view 2D Screening mammogram. ??Views obtained: ??bilateral craniocaudal and bilateral mediolateral oblique. ??Computer Aided Detection was performed. Mammogram Findings: The present examination has been compared to prior imaging studies performed at [facility] on 11/28/2022, and at [place], [place] on 06/25/2020 and 02/11/2021. The breasts are heterogeneously dense, which may obscure small masses. There is no suspicious abnormality in either breast. Impression: There is no mammographic evidence of malignancy. Annual screening mammography is recommended. If supplemental screening is desired, breast MRI would be recommended in this patient with heterogeneously dense breasts. OVERALL FINAL ASSESSMENT: BI-RADS CATEGORY 1: ??Negative. Procedure Note Keiry Higgins MD - 12/25/2023 Mammogram Technique: Bilateral Digital Breast Tomosynthesis, Bilateral C-view 2D Screening mammogram. Views obtained: bilateral craniocaudal and bilateral mediolateral oblique. Computer Aided Detection was performed. Mammogram Findings: The present examination has been compared to prior imaging studies performed at [facility] on 11/28/2022, and at [place], [place] on 06/25/2020 and 02/11/2021. The breasts are heterogeneously dense, which may obscure small masses. There is no suspicious abnormality in either breast. Impression: There is no mammographic evidence of malignancy. Annual screening mammography is recommended. If supplemental screeningis desired, breast MRI would be recommended in this patient with heterogeneously dense breasts. OVERALL FINAL ASSESSMENT: BI-RADS CATEGORY 1: Negative. us Self Screening Mammogram IMG MAMMO PROCEDURES Fi nal Result from Last 3 Months or Most Recently Relevant to Health Maintenance Insurance [facility] [address] [facility] [address] [facility] [address] [facility] [address] Advance Directives For more information, please contact: [phone] * Full Code (Latest Code Status on File) Date Activated Date Inactivated Comments 04/22/2021 9:35 AM 04/22/2021 2:43 PM Care Teams Bottom Sprayer Relationship Specialty Start Date End Date Chapo Desai MD [address] [address] PCP - General Family Practice 04/10/24 Kamran Jacobo MD [address] [place] [address] Consulting Physician Otolaryngology 04/22/21 Doroteo Bowden MD [address] [place] [address] Radiation Oncologist Radiation Oncology 03/02/22 Hermila Glynn MD PhD [address] [facility] [address] [place] [address] Medical Oncologist/Hematologi st Medical Oncology 06/15/22 Tiffany Martínez MD [address] [facility] [address] [place] [address] Referring Physician Plastic Surgery 06/15/22 Teri Barlow MD [address] [facility] [address] [place] [address] Consulting Physician Obstetrics and Gynecology 12/25/23
--- OUTSIDE RECORDS SUMMARY | 2024-10-10 03:49 | XMS_ITS | Data Portability ---
Author Organization [employer] , [facility]_Jhonny Address [address] [place] [address] Care Team Providers Care Prenatal Genetic Counselor Name Role Phone DENICE SOL Primary Care Provider [phone] Assessment No assessment recorded. Plan of Treatment Reminders Order Date Submit Date Provider Last Modified By Organization Details Last Modified Time Details Appointments None recorded. Lab HPV E6+E7 mRNA, qualitative PCR, cervix 2020 021 [employer] [facility], [address] [place], [address], 1 14:57:09 pap, LB 2020 021 [facility], [address] [place], [address], 1 13:49:15 HPV E6+E7 mRNA, qualitative PCR, cervix 2022 023 [employer] [facility], [address] [place], [address], 3 15:22:54 pap, LB 2022 023 [facility], [address] [place], [address], 3 15:03:09 HPV E6+E7 mRNA, qualitative PCR, cervix 2023 024 [employer] [facility], [address] [place], [address], 4 15:48:22 pap, LB 2023 024 [facility], [address] [facility], [place], [address], 4 12:23:27 HPV E6+E7 mRNA, qualitative PCR, cervix 2024 025 [facility], [address] [place], [address], 5 15:13:26 pap, LB - pt is on ocp 2024 025 [facility], [address] [facility], [place], [address], 5 15:13:50 Referral None recorded. Procedures None recorded. Surgeries None recorded. Imaging MAMMO, screening, digital, bilateral 2020 021 [email or web address] [facility]), [address] [place] [address], [address], 1 08:44:50 US, breast, unilateral - family hx breast cancer maternal aunt, pt on ocp [facility] [address] [place], [address], 3 16:49:34 MAMMO, diagnostic, digital, unilateral 2022 023 [email or web address], [address], [place], [address], 3 16:49:34 MAMMO, screening, digital, bilateral [address] [facility]), [address] [place] [address], [address], 5 02:51:29 MAMMO, screening, digital, bilateral 2024 025 [email or web address] [facility], [address] [place] [address], [address], 5 14:17:24 Medication Orders Seasonique 0.15 mg-30 mcg (84)/10 mcg(7) tablets,3 month dose pack 2020 021 [email or web address] [facility]655, [address], [place], [id number], 3 12:18:12 triamcinolo ne acetonide 0.1 % topical cream 2022 023 [email or web address] [facility] #79823, [address], [place], [id number], 5 09:48:32 fluoxetine 10 mg capsule 2022 023 [email or web address] 6 [facility] #11175, [address] [place], [id number], 4 14:27:10 Seasonique 0.15 mg-30 mcg (84)/10 mcg(7) tablets,3 month dose pack 2022 023 [facility]34822, [address] [place], [place], [id number], 3 12:56:42 Simpesse 0.15 mg-30 mcg (84)/10 mcg(7) tablets,3 month dose pack 2023 024 [facility] #83867, [address], [place], [id number], 4 15:08:33 Porsha (28) 90 mcg-20 mcg tablet 2024 025 [facility], [facility], [place], [address], 14:06:54 Patient TargetsNo targets recorded. Patient Instructions Encounter Date Encounter Id Patient Instructions Last Modified By Organization Details Last Modified Time 08/02/2021 [id number] eating healthy foods: care instructions Not available 08/03/2021 08:44:50 general health care education Not available 08/03/2021 08:44:50 weight managemen t education Not available 08/03/2021 08:44:50 A healthy lifestyle: care instructions Not available 08/03/2021 08:44:50 Following the My[employer]ate Food Guide: Care Instructions Not available 08/03/2021 08:44:50 exercise program : getting started Not available 08/03/2021 08:44:50 control counseling Not available 08/03/2021 08:44:50 09/19/2022 [id number] Patient Health Questionnaire-9* [email or web address] Not available 09/25/2022 16:37:48 10/02/2023 [id number] body mass index: care instructions Not available 10/02/2023 15:08:24 eating healthy foods: care instructions Not available 10/02/2023 15:08:24 general health care education Not available 10/02/2023 15:08:24 mammogram: about this test Not available 10/02/2023 15:08:24 10/07/2024 [id number] Patient Health Questionnaire-9* [email or web address] Not available 10/07/2024 17:38:37 eating healthy foods: care instructions Not available 10/07/2024 14:06:52 general health care education Not available 10/07/2024 14:06:52 body mass index: care instructions Not available 10/07/2024 14:06:52 mammogram: about this test Not available 10/07/2024 14:06:52 Reason for Referral None Reported. Results Created Date Observation Date Name Description Value Unit Range Abnormal Flag Note LastModifiedBy Organization Detail LastModifiedTime 08/02/20 21 08/04/2021 HPV HIGH RISK HPV high risk Negati ve negati ve This assay is not inten ded for use as a scree kelvin devic e for women under age 30 with debbie l cervi justin cytol ogy. This assay is not inten ded to subst itute for regul ar cervi justin cytol ogy scree kelvin. This assay does not diffe renti pardo HPV types . Not Available [facility] [address] [place], [address], 08/04/2021 14:57:09 08/02/20 21 08/10/2021 THINP REP TIS PAP clinical information: normal Infor matio n not provi ded Not Available [address] [place], [address], 08/10/2021 13:49:15 08/02/20 21 08/10/2021 THINP REP TIS PAP LMP: normal NONE GIVEN Not Available [address] [place], [address], 08/10/2021 13:49:15 08/02/20 21 08/10/2021 THINP REP TIS PAP prev. Pap: normal NONE GIVEN Not Available [address], [address], 08/10/2021 13:49:15 08/02/20 21 08/10/2021 THINP REP TIS PAP prev. BX: normal NONE GIVEN Not Available [address], [address], 08/10/2021 13:49:15 08/02/20 21 08/10/2021 THINP REP TIS PAP source: normal Cervi x, Endoc ervix Not Available [address], [address], 08/10/2021 13:49:15 08/02/20 21 08/10/2021 THINP REP TIS PAP statement of adequacy: normal Satis facto ry for evalu ation . Endoc ervic al/tr ansfo rmati on zone compo nent prese nt. Age and/o r menst rual statu s not provi ded Not Available [address] [address] [place], [address], 08/10/2021 13:49:15 08/02/20 21 08/10/2021 THINP REP TIS PAP interpretati on/result: normal Negat jairon for intra epith elial lesio n or malig mahi . Not Available [address] [address] [place], [address], 08/10/2021 13:49:15 08/02/2008/10/2021 THINP REP TIS PAP comment: normal This Pap test has been evalu ated with compu ter bianca bessie techn ology . Not Available [address] [address] [place], [address], 08/10/2021 13:49:15 08/02/20 21 08/10/2021 THINP REP TIS PAP cytotechnolo gist: normal LMT, CT( CP) CT scree kelvin locat ion: [address] [address] [place] [address] Not Available [address] [address] [place], [address], 08/10/2021 13:49:15 08/02/2008/10/2021 THINP REP TIS PAP comment EXPLA NATOR Y NOTE: The Pap is a scree kelvin test for cervi justin cance r. It is not a diagn ostic test and is subje ct to false negat jairon and false posit jairon resul ts. It is most relia ble when a satis facto ry sampl e, regul rosa obtai ziyad, is submi tted with relev ant clini justin findi ngs and histo ry, and when the Pap resul t is evalu ated along with histo anatoliy and curre nt clini justin infor matio n. Not Available [address] [address] [place], [address], 08/10/2021 13:49:15 09/19/19 23 09/20/2022 HPV HIGH RISK HPV high risk Negati ve negati ve normal The HPV High Risk assay is inten ded for use as co-te sting with cytol ogy and not as a subst itute for regul ar cervi justin cytol ogy scree kelvin. This assay is not inten ded for use as a scree kelvin devic e for women under age 30 with debbie l cervi justin cytol ogy. Not Available [facility] [address] [place], [address], 09/20/2022 15:22:54 09/19/1909/21/2022 THINP REP TIS PAP clinical information: normal None given Not Available [address] [address] [place], [address], 09/21/2022 15:03:08 09/19/1909/21/2022 THINP REP TIS PAP LMP: normal NONE GIVEN Not Available [address] [place], [address], 09/21/2022 15:03:08 09/19/1909/21/2022 THINP REP TIS PAP prev. Pap: normal NONE GIVEN Not Available [address] [address] [place], [address], 09/21/2022 15:03:08 09/19/1909/21/2022 THINP REP TIS PAP prev. BX: normal NONE GIVEN Not Available [facility] [address] [address] [place], [address], 09/21/2022 15:03:08 09/19/1909/21/2022 THINP REP TIS PAP source: normal Cervi x Not Available [email or web address] [address] [address] [place], [address], 09/21/2022 15:03:08 01/03/20 23 09/21/2022 THINP REP TIS PAP statement of adequacy: normal Satis facto ry for evalu ation . Endoc ervic al/tr ansfo rmati on zone compo nent prese nt. Age and/o r menst rual statu s not provi ded Not Available [address] [address] [place], [address], 09/21/2022 15:03:08 09/19/19 23 09/21/2022 THINP REP TIS PAP interpretati on/result: normal Negat jairon for intra epith elial lesio n or malig mahi . Not Available [facility] [address] [address] [place], [address], 09/21/2022 15:03:08 09/19/19 23 09/21/2022 THINP REP TIS PAP comment: normal This Pap test has been evalu ated with compu ter bianca bessie techn ology . Not Available [address] [address] [place], [address], 09/21/2022 15:03:08 09/19/19 23 09/21/2022 THINP REP TIS PAP cytotechnolo gist: normal LMT, CT( CP) CT scree kelvin locat ion: [address] [address] [place] [address] Not Available [facility] [address] [address] [place], [address], 09/21/2022 15:03:08 09/19/19 23 09/21/2022 THINP REP TIS PAP comment EXPLA NATOR Y NOTE: The Pap is a scree kelvin test for cervi justin cance r. It is not a diagn ostic test and is subje ct to false negat jairon and false posit jairon resul ts. It is most relia ble when a satis facto ry sampl e, regul rosa obtai ziyad, is submi tted with relev ant clini justin findi ngs and histo ry, and when the Pap resul t is evalu ated along with histo anatoliy and curre nt clini justin infor matio n. Not Available [address] [address] [place], [address], 09/21/2022 15:03:08 09/22/19 24 10/03/2023 HPV HIGH RISK HPV high risk Negati ve negati ve normal The HPV High Risk assay is inten ded for use as co-te sting with cytol ogy and not as a subst itute for regul ar cervi justin cytol ogy scree kelvin. This assay is not inten ded for use as a scree kelvin devic e for women under age 30 with debbie l cervi justin cytol ogy. Not Available [address], [address], 10/03/2023 15:48:22 10/02/19 24 10/05/2023 THINP REP TIS PAP clinical information: normal None given Not Available [email or web address] [address] [address] [place], [address], 10/05/2023 12:23:27 10/02/19 24 10/05/2023 THINP REP TIS PAP LMP: normal NONE GIVEN Not Available [email or web address] [address] [place], [address], 10/05/2023 12:23:27 10/02/19 24 10/05/2023 THINP REP TIS PAP prev. Pap: normal NONE GIVEN Not Available [facility] [address] [address] [place], [address], 10/05/2023 12:23:27 10/02/19 24 10/05/2023 THINP REP TIS PAP prev. BX: normal NONE GIVEN Not Available [facility] [address] [address] [place], [address], 10/05/2023 12:23:27 10/02/19 24 10/05/2023 THINP REP TIS PAP source: normal Cervi x Not Available [facility] [address] [address] [place], [address], 10/05/2023 12:23:27 10/02/19 24 10/05/2023 THINP REP TIS PAP statement of adequacy: normal Satis facto ry for evalu ation . Endoc ervic al/tr ansfo rmati on zone compo nent prese nt. Age and/o r menst rual statu s not provi ded Not Available [address] [address] [place], [address], 10/05/2023 12:23:27 10/02/19 24 10/05/2023 THINP REP TIS PAP interpretati on/result: normal Cytol ogy Resul ts: Negat jairon for intra epith elial lesio n or maljanette champagne . Not Available [address] [address] [place], [address], 10/05/2023 12:23:27 10/02/19 24 10/05/2023 THINP REP TIS PAP comment: normal This Pap test has been evalu ated with compu ter bianca bessie techn ology . Not Available [address] [address] [place], [address], 10/05/2023 12:23:27 10/02/19 24 10/05/2023 THINP REP TIS PAP cytotechnolo gist: normal YQ, CT( CP) CT scree kelvin locat ion: [address] [address] [place] [address] Not Available [address] [address] [place], [address], 10/05/2023 12:23:27 10/02/19 24 10/05/2023 THINP REP TIS PAP comment EXPLA NATOR Y NOTE: The Pap is a scree kelvin test for cervi justin cance r. It is not a diagn ostic test and is subje ct to false negat jairon and false posit jairon resul ts. It is most relia ble when a satis facto ry sampl e, regul rosa obtai ziyad, is submi tted with relev ant clini justin findi ngs and histo ry, and when the Pap resul t is evalu ated along with histo anatoliy and curre nt clini justin infor matra n. Not Available [facility] [address] [address], [place], [address], 10/05/2023 12:23:27 11/29/19 23 11/28/2022 US, breas t, limit ed No observ ation record ed. [facility] Breast [address], [address], 05/15/2023 12:55:03 11/29/19 23 11/28/2022 MAMMO , diagn ostic , digit al, bilat eral No observ ation record ed. [id number] [place], [address], 05/15/2023 12:56:39 12/26/19 24 12/25/2023 MAMMO , scree kelvin, digit al, bilat eral No observ ation record ed. [facility]) [address], [place], [address], 10/07/2024 02:51:29 Result Notes None recorded. Problems Name Problem SNOMED Code Status Onset Date Resolution Date Notes Provider Name and Address Organization Details Recorded Time Uses combined oral contracep tion 666520804 Active 2017 Encounter for surveillan ce of contracept jairon pills; Severity: Moderate Progress: Stable Added By: Kamilla Parrish Add to Current Problems: YES ProblemSta tus: Current Not Available [employer] 1 20:14:57 Problem Notes None recorded. Procedures Surgical History Date Name Laterality Status Provider Name and Address Organization Details Recorded Time 4 Most Recent Mammogram completed Kary Wagoner [facility] 10/07/2024 09:46:44 Date of Last Pap Smear completed Teri Barlow MD [address] [facility], [place], [address], [facility] 10/07/2024 02:52:20 Any Surgical History completed Yoly Ortiz [facility] 08/02/2021 13:00:29 Imaging Results Imaging Date Name Status LastModified by Deandra winkler Details LastModified Time 11/28/2022 US, breast, limited completed [facility] [address] [place], [address], 05/15/2023 12:55:03 11/28/2022 MAMMO, diagnostic, digital, bilateral completed [facility] [address] [place], [address], 05/15/2023 12:56:39 12/25/2023 MAMMO, screening, digital, bilateral active [address], [address], 10/07/2024 02:51:29 Procedure Notes None recorded. Medical Equipment None Reported. Allergies No known drug allergies Medications Name Sig Start Date Stop Date Status Note LastModified by Organization Details LastModified Time otc antigent 1-pack kit 09/13 completed Not Available Not Available Not Available prednison e 10 mg tablet TAKE 1 TABLET BY MOUTH TWICE DAILY 10/02 completed Not Available Not Available Not Available diclofena c ER 100 mg tablet,ex tended release 24 hr 10/07 completed Not Available Not Available Not Available fluticaso ne propionat e 0.05 % topical cream 10/02 completed Not Available Not Available Not Available Diflucan 150 mg tablet 1 p.o. now, repeat in 3 days 04/20 completed Diflucan 150mg Tablet RxNorm: 059284 Allow Substitu tion: True Refill Denied: No Not Available Not Available Not Available valacyclo vir 500 mg tablet TAKE 1 TABLET BY MOUTH TWICE DAILY FOR 3 DAYS NEEDED FOR OUTBREAK active Not Available Not Available No t Available triamcino lone acetonide 0.1 % topical cream APPLY THIN LAYER TOPICALL Y TO THE AFFECTED AREA TWICE DAILY NEEDED FOR ITCHING 10/07 completed Not Available Not Available Not Available zolmitrip yeager 5 mg tablet active Not Available Not Available Not Available ketorolac 10 mg tablet 11/16 /2021 completed Not Available Not Available Not Available hydrocodo ne 7.5 mg-acetam inophen 325 mg tablet TAKE 1 TABLET BY MOUTH EVERY 6 HOURS FOR UP TO 5 DAYS NEEDED FOR PAIN 08/02 completed Not Available Not Available Not Available cephalexi n 500 mg capsule 08/02 completed Not Available Not Available Not Available fluoxetin e 10 mg capsule TAKE 1 CAPSULE BY MOUTH EVERY DAY 10/02 completed Not Available Not Available Not Available diclofena c sodium 75 mg tablet,de layed release TAKE 1 TABLET BY MOUTH TWICE DAILY 10/07 completed Not Available Not Available Not Available Pepcid AC 10 mg tablet Take 1 tablet every day by oral route. active Not Available Not Available No t Available zolmitrip yeager 5 mg nasal spray 10/07 completed Not Available Not Available Not Available magnesium active Not Available Not Yomaira ilable Not Available Stool Softener active Not Available Not Available Not Available Multivita mins 04/05 completed Multivit amins Allow Substitu tion: True Refill Denied: No Refill DateOccu rred: 01/31/20 18 Edited by: Whitney Scanlon ) on 04/05/20 Stopped by: Whitney Scanlon ) on 04/05/20 20 Not Available Not Available Not Available Seasoniqu e 1 tab po countinu ous 02/14 completed Seasoniq ue Extended Cy Tablet RxNorm: 081044 Allow Substitu tion: True Refill Denied: No Not Available Not Available Not Available Porsha (28) 90 mcg-20 mcg tablet Take 1 tablet every day by oral route. 2024 active Not Available Not Available Not Avai lable semagluti de 10/02 completed Not Available Not Available Not Available Emgality Pen 120 mg/mL subcutane ous pen injector ADMINIST ER 1 ML UNDER THE SKIN 1 TIME MONTHLY 10/07 completed Not Available Not Available Not Available Emgality 120 mg/mL subcutane ous syringe 10/02 completed Emgality Syringe 120 mg/mL subcutan eous Syringe RxNorm: [id number] Allow Substitu tion: True Refill Denied: No Refill DateOccu rred: 02/15/20 Edited by: joyce wise(Oj on, Lashonda ) on 03/29/20 Stopped by: joyce wise(Oj on, Lashonda ) on Not Available Not Available Not Available Simpesse 0.15 mg-30 mcg (84)/10 mcg(7) tablets,3 month dose pack TAKE 1 TABLET BY MOUTH EVERY DAY. SKIPPING PLACEBO PILLS active Not Available Not Available No t Available Tosymra 08/02 completed Tosymra RxNorm: 6976311 Allow Substitu tion: True Refill Denied: No Refill DateOccu rred: 02/15/20 Edited by: melany(Malaika Posada ) on 03/29/20 Stopped by: melany(Malaika Posada ) on Not Available Not Available Not Available Ubrelvy 100 mg tablet TAKE 1 TABLET BY MOUTH NEEDED FOR MIGRAINE MAY REPEAT ONCE IN 2 HOURS AFTER 1ST DOSE IF NEEDED active Not Available Not Available No t Available ID NOW COVID-19 Test Kit TEST DIRECTED TODAY 09/13 completed Not Available Not Available Not Available BinaxNOW COVID-19 Ag Self Test kit TEST DIRECTED TODAY 09/13 completed Not Available Not Available Not Available Qulipta 60 mg tablet TAKE 1 TABLET DAILY active Not Available Not Available No t Available Mounjaro 10 mg/0.5 mL subcutane ous pen injector Inject by subcutan eous route. active Not Available Not Available No t Available Vitals Date Recorded Body weight Provider Name an d Address Organization Details Last Updated DateTime 08/02/2021 70763.07 g Yoly Noelmega [place] [facility] 08/02/2021 12:59:14 Date Recorded Body mass index (BMI) Body height Provider Name and Address Organization Details Last Updated DateTime 08/02/2021 32.4 kg/m2 167.64 cm [facility] 08/02/2021 12:59:18 Date Recorded Body weight Provider Name an d Address Organization Details Last Updated DateTime 09/19/2022 60678.69 g Rima Groves [place] [facility] IV 09/19/2022 12:16:19 Date Recorded Body mass index (BMI) Body height Provider Name and Address Organization Details Last Updated DateTime 09/19/2022 32.8 kg/m2 167.64 cm Rima Groves [place] [facility] 09/19/2022 12:17:28 Date Recorded Body height Provider Name an d Address Organization Details Last Updated DateTime 10/07/2024 167.64 cm Kary Wagoner [place] - [facility] 10/07/2024 09:46:55 Date Recorded Body mass index (BMI) Body weight Provider Name and Address Organization Details Last Updated DateTime 10/07/2024 24.5 kg/m2 35945.04 g Kary Wagoner [place] [facility] 10/07/2024 09:47:02 Date Recorded Systolic blood pressure Diastolic blood pressure Provider Name and Address Organization Details Last Updated DateTime 08/02/2021 116 mm[Hg] 78 mm[Hg] Yoly Ortiz [place] [facility] 08/02/2021 13:00:00 Date Recorded Systolic blood pressure Diastolic blood pressure Provider Name and Address Organization Details Last Updated DateTime 09/19/2022 122 mm[Hg] 84 mm[Hg] Rima Arguetas [place] [facility] 09/19/2022 12:21:52 Date Recorded Systolic blood pressure Diastolic blood pressure Provider Name and Address Organization Details Last Updated DateTime 10/02/2023 120 mm[Hg] 80 mm[Hg] Tegan Mas [place] [facility] 10/02/2023 14:57:35 Date Recorded Systolic blood pressure Diastolic blood pressure Provider Name and Address Organization Details Last Updated DateTime 10/07/2024 102 mm[Hg] 70 mm[Hg] Kary Wagoner [place] [facility] 10/07/2024 09:47:50 Social History Question Answer Notes LastModified by Organizat ion Details LastModified Time Tobacco Smoking Status Never Smoker Yoly peña, [place] - [facility] 08/02/2021 13:00:23 What Is Your Level Of Alcohol Consumption? Occasional Information not available 08/02/2021 How Many Times Per Week Do You Consume Alcohol? Less Than 1 Time Per Week [email or web address] Information not available 10/07/2024 How Many Years Have You Consumed Alcohol? 23 [email or web address] Information not available 10/07/2024 Are You Blind Or Do You Have Difficulty Seeing? No [email or web address] Information not available 10/03/2024 Are You Currently Employed? Yes Information not available 08/02/2021 Are You Deaf Or Do You Have Serious Difficulty Hearing? No Information not available 10/03/2024 What Type Of Diet Are You Following? REGULAR Information not available 08/02/2021 Do You Or Have You Ever Used E-cigarettes Or Vape? Never Used Electronic Cigarettes Information not available 08/02/2021 What Is The Highest Grade Or Level Of School You Have Completed Or The Highest Degree You Have Received? 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 0 [email or web address] Information not available 10/03/2024 Are There Any Occupational Health Risks Where You Work? No [email or web address] Information not available 10/03/2024 What Is Your Relationship Status? Information not available 08/02/2021 Are You Sexually Active? Yes [email or web address] Information not available 10/02/2023 Do You Use Any Illicit Or Recreational Drugs? No [email or web address] Information not available 10/03/2024 Do You Or Have You Ever Used Any Other Forms Of Tobacco Or Nicotine? No [email or web address] Information not available 10/07/2024 Sex: Unknown Functional Status Question Answer Note LastModified by Organization D etails LastModified Time What is your exercise level? None [email or web address] Information not available 10/07/2024 Mental Status None recorded. Family History Relationship Description Onset Age of this Age Resolved Age Notes LastModified by Organization Details LastModified Time Maternal Grandmother Myocardial infarction [email or web address] Not available 13:00:08 Maternal Grandmother Cerebrovascu lar accident rreinheimer Not available 10/02/2020 13:00:08 Father Malignant neoplastic disease [email or web address] Not available 07/18 13:00:08 Father Hypertensive disorder rreinheimer Not available 07/18 13:00:08 Mother Hypercholest erolemia rreinheimer Not available 07/18 13:00:08 Brother Myocardial infarction rreinheimer Not available 13:00:08 Paternal Grandmother Myocardial infarction rreinheimer Not available 13:00:08 Medical History Condition Response Headaches/migraines Y History of Abnormal Pap Y High Cholesterol Y Gynecological History Statement/Question Response Date of Last Colonoscopy Date of last HPV 10/02/2023 Frequency of Cycle (Q days) 365 Date of LMP 12/15/2019 Most Recent Bone Density Date of Last Pap Smear 10/02/2023 Duration of Flow (days) 3 Most Recent Mammogram 11/16/2023 Current Control Method BCPs Age at Menarche 11 Obstetrics History GPAL:G 1 P 0 0 1 0 Type Value Induced 1 Living 0 Total 1 Immunizations Vaccine Type Date Status Note Provider Nam e and Address Organization Details Recorded Time SARS-COV-2 (COVID-19) vaccine, UNSPECIFIED 12/03/2020 completed [facility] pe[facility] 08/02/2021 13:02:02 Past Encounters Encounter ID Performer Location Encounter Start Date Encounter Closed Date Diagnosis/Indication Diagnosis SNOMED-CT Code Diagnosis ICD10 Code Diagnosis Note [id number] Nyasia Castro MD [address] [place] [address] 08/02/2021 12:47:27 08/02/2021 15:29:49 Gynecologic examination 77324336 Z01.419 Screening for malignant neoplasm of cervix 655463003 Z12.4 Screening for malignant neoplasm of breast 424536615 Z12.39 Surveillan ce of contraception 831549919 Z30.40 [id number] Teri Barlow MD [facility] [address] [place] [address] 09/19/2022 12:08:11 09/19/2022 13:25:19 Screening for malignant neoplasm of cervix 380386883 Z12.4 Depression screening 171 181805 Z13.31 Gynecologi c examination 48242210 Z01.419 Surveillan ce of oral contraception 053100766 Z30.41 Pain of left breast 1010 902587 N64.4 normal exam today. had scr mammogram, normal, in February. Will order dx study Perimenopa usal disorder 862388216 N95.9 discussed perimenopa use and desires to start low dose fluoxetine . Vulvitis 43679653 N76.2 disc various sources of itching, incl contact and allergic dermatitis . Pt has switched to sens skin/free laundry detergents [id number] Teri Barlow MD [facility] [address] [place] [address] 10/02/2023 14:15:30 10/09/2023 21:52:35 Gynecologic examination 22038164 Z01.419 Screening for malignant neoplasm of cervix 661555758 Z12.4 Screening for malignant neoplasm of breast 310403530 Z12.31 Surveillan ce of contraception 776753929 Z30.40 doing well on extended cy pills, discussed occ BTB episodes [id number] Teri Barlow MD [facility] [address] [place] [address] 10/07/2024 09:41:06 10/07/2024 14:17:24 Gynecologic examination 19218704 Z01.419 well woman exam todayDiscu ssed health concerns and screenings .Continue annual mammogram Screening for malignant neoplasm of cervix 893771807 Z12.4 Screening for malignant neoplasm of breast 339151938 Z12.39 Depression screening 171 991713 Z13.31 Uses oral contraception 8027114 Z30.41 discussed that trying a lower estrogen pill may benefit her migraines. advised that migraines often worsen in the perimenopa usal periodPt is planning on changing careers to lower her stress level, which may help with her migraines Health Concerns Section Related Observation LastModified by Organization Detai ls LastModified Time None Recorded Concern Status LastModified by Organization Details LastModified Time None Recorded Advance Directives Directive None Recorded Payers Encounter Date Sequence Insurance Name Policy Number Policy Velasquez Covered Member ID Velasquez Member ID Guarantor Name 08/02/2021 1 [employer] - [employer] SOL[employer]IONS - OPEN ACCESS Marianna Bernal [id number] SOI Marianna Bernal 09/19/2022 1 [employer] - OPEN ACCESS Marianna Bernal [id number] SOI Marianna Bernal 10/02/2023 1 [employer] - [place] [employer] - OPEN ACCESS Marianna Bernal [id number] SOI Marianna Bernal 10/07/2024 1 [employer] - [facility] B[employer] Chapo Bernal [id number] CORTNEY Bernal Notes Date Note Type Note Provider Name and Address Organization Details Recorded Time 08/02/2021 text/html Annual GYNReport ed bypatient.History:no gynecologic complaints Menstrual cycle:Normal menses Breast:No breast pain Current Contraception:Satisf ied with current contraception; Oral contraceptives Nyasia Castro MD [address] [place] [address], [place], [address], [facility] [employer] 08/02/2021 13:40:27 09/19/2022 text/html Marianna is being seen today for an annual papc/o left breast pain x 2 month- no d/c, no lumps felt by pt. Maternal aunt with breast cancer.Notes some vulvar skin itching. no discharge or signs infection.Would like to talk about perimenopause, feels hot often, mood irritability, weight gain midsection. 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 Regarding her migraines, these are typical and do not involve aura. She has tried various newer prophylactic medications. Her neurologist has suggested to try a lower estrogen ocp. She is interested in trying Porsha, which is a 20 mcg continuous ocp Pt voices no other concerns. PHQ is 0 Teri Barlow MD [facility], [place], [address], [facility] 10/07/2024 14:09:54 OBGyn Episode No OBEpisode recorded.
--- OUTSIDE RECORDS SUMMARY | 2024-10-10 03:49 | XMS_ITS | Encounter Summary ---
Author Organization [facility] Address [address] [place] [address] Care Team Providers Care Travel Rn Name Role Phone Unavailable Primary Care Provider Unavailabl e Reason for Visit * Diagnostic Imaging (Routine) - Closed Specialty Diagnoses / Procedures Referred By Ganga t Referred To Contact Procedures Breast Imaging Screening Outside Reference Referral, Self Referral ID Status Reason Start Date Expiration Date Visits Re quested Visits Authorized [id number] Closed 10/19/2022 11/18/2023 1 1 Encounter Details Date Type Department Care Team (Late st Contact Info) Description 05/26/2020 Hospital Encounter [facility] [address] [place] [address] [id number] Social History Tobacco Use Types Packs/Day Years [...] 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 ??There will be no report generated by a [facility] Radiologist. Narrative [facility] - 10/19/2022 10:19 AM ELECTROPHYSIOLOGY SCIENTIST EXAMINATION: ??Images For Reference Purposes Only us Self Referral IMG MAMMO PROCEDURES Final Resul t [facility] documented in this encounter Visit Diagnoses Not on filedocumented in this encounter
--- OUTSIDE RECORDS SUMMARY | 2024-10-10 03:49 | XMS_ITS | Encounter Summary ---
Author Organization [facility] Address [address] [place] [address] Care Team Providers Care Utility Mechanic Supervisor Name Role Phone Unavailable Primary Care Provider Unavailabl e Encounter Details Date Type Department Care Team (Late st Contact Info) Description 06/17/2024 Lab Requisition [facility] - DermPath Lab [address] [place] [address] Radhames Hinson MD [address] [place] [address] Social History Tobacco Use Types Packs/Day Years Used Date Smoking Tobacco: Never Assessed Sex and Gender Information Value Date Recorded Sex Assigned at Not on file Gender Identity Not on file Sexual Orientation Not on file documented as of this encounter Plan of Treatment Not on file documented as of this encounter Procedures Procedure Name Priority Date/Time Associated Diagnosis Comments DERMATOPATHOLOGY Routine 06/17/2024 12:0 0 AM CDT documented in this encounter Results * DERMATOPATHOLOGY (06/17/2024 12:00 AM CDT) Case Report Dermatopathology Report ? Case: [id number] ? Authorizing Provider: ??Radhames Hinson MD ?Collected: ? 06/17/2024 12:00 AM ? Ordering Location: ? [facility] - ??Received: ?06/17/2024 03:35 PM ? DermPath Lab ? Pathologist: ? Carolyn Serna MD ? Specimens: ?? A) - Skin, left mandibular ? B) - Skin, left nasal bridge ? 4 5:10 PM CDT DERMATOPATHOLOGY LABORATORY Final Diagnosis Specimen A. SKIN, left mandibular: BASAL CELL CARCINOMA, NODULAR TYPE (C44.319) Specimen B. 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 The specimen consists of a shave biopsy measuring 2 pieces 3x2x1,1x1x1 mm. Jar 0. Specimen B: Received is one formalin filled container labeled with the patients name and designated left nasal bridge. The specimen consists of a shave removal measuring 3x2x1 mm. Jar 0. 4 5:10 PM CDT DERMATOPATHOLOGY LABORATORY Microscopic Description Specimen A. SKIN, left mandibular: Within the dermis there are aggregates of basaloid cells with a high nuclear to cytoplasmic ratio and peripheral palisading. Specimen B. SKIN, left nasal bridge: Neutrophils, histiocytes, and multinucleated giant cells are present within the dermis. There is admixed mucin. Multiple additional deeper sections were obtained and reviewed. COMMENT: The histologic findings can be seen in a ruptured cyst or hair follicle. However, due to the admixed mucin this could represent stroma surrounding a basal cell carcinoma. Clinicopathologic correlation is recommended. 4 5:10 PM CDT DERMATOPATHOLOGY LABORATORY Disclaimer An external and internal positive and negative controls are appropriate for the histochemical, immunohistochemical and immunofluorescence stain(s) in this case (if any), except where stated explicitly. The performance characteristics of the stain(s) cited in this report were developed and its performance characteristic determined by the Dermatopathology Laboratory at [facility], directed by Dr. Anne Serna. These tests need not be, and therefore are not, approved by the [place] Food and Drug Administration. The tests are used for clinical purposes. Billing Codes Specimen Charges Stain Charges 90126 78558 1 1 4 5:10 PM CDT DERMATOPATHOLOGY LABORATORY Embedded Images 4 5:10 PM CDT DERMATOPATHOLOGY LABORATORY Pathology/Cytology TISSUE SPECIMEN FROM SKIN / Unknown 06/17/2024 06/17/2024 3:35 PM CDT Miscellaneous samples (specimen) TISSUE SPECIMEN FROM SKIN / Unknown 06/17/2024 06/17/2024 3:35 PM CDT Radhames Hinson MD LAB - PATHOLOGY/CYTO LOGY ORDERABLES DERMATOPATHOLOGY LABORATORY [facility] - Department of Dermatology [address], [address] [phone] documented in this encounter Visit Diagnoses Not on filedocumented in this encounter
--- OUTSIDE RECORDS SUMMARY | 2024-10-10 03:49 | XMS_ITS | Referral Summary ---
Author Organization [facility] Address [address] [place] [address] Care Team Providers Care Vice President Underwriting Name Role Phone Unavailable Primary Care Provider Unavailabl e Source Comments [facility],non-owned Affiliates and Associated Physician Practices is amultiple site organization consisting of ambulatory clinics and hospital sitesin [place], [place], [place] and [place]. This disclosure is being madepursuant to the Care Everywhere program and may not contain all information available regarding this patient. Last updated 18.[facility] Social History Tobacco Use Types Packs/Day Years Used Date Smoking Tobacco: Never Assessed Sex and Gender Information Value Date Recorded Sex Assigned at Not on file Gender Identity Not on file Sexual Orientation Not on file Plan of Treatment Not on file Marianna Bernal Personal/Famil y Self 1980
--- OUTSIDE RECORDS SUMMARY | 2024-10-10 03:49 | XMS_ITS | Patient Health Summary ---
Author Organization [facility] Address [address] [place] [address] Care Team Providers Care Hr Receptionist Name Role Phone Unavailable Primary Care Provider Unavailabl e Note from [facility],non-owned Affiliates and Associated Physician Practices is amultiple site organization consisting of ambulatory clinics and hospital sitesin [place], [place], [place] and [place]. This disclosure is being madepursuant to the Care Everywhere program and may not contain all information available regarding this patient. Last updated 18.[facility] Social History Tobacco Use Types Packs/Day Years Used Date Smoking Tobacco: Never Assessed Sex and Gender Information Value Date Recorded Sex Assigned at Not on file Gender Identity Not on file Sexual Orientation Not on file Procedures * DERMATOPATHOLOGY(Performed 07/01/2024) * DERMATOPATHOLOGY(Performed 06/17/2024) Results * DERMATOPATHOLOGY (07/01/2024 12:00 AM CDT) Only the most recent of2 resultswithin the time period is included. Case Report Dermatopathology Report ? Case: [id number] ? Authorizing Provider: ??Radhames Hinson MD ?Collected: ? 07/01/2024 12:00 AM ? Ordering Location: ? [facility] - ??Received: ?07/01/2024 04:30 PM ? DermPath Lab ? Pathologist: ? Carolyn Serna MD ? Specimen: ?Skin, left mandibular ? 4 6:09 PM T DERMATOPATHOLOGY LABORATORY Final Diagnosis Specimen A. SKIN, left mandibular: HEALING SKIN CHANGES (L90.5) 4 6:09 PM [facility] DERMATOPATHOLOGY LABORATORY Clinical History BCC bx site 4 6:09 PM T DERMATOPATHOLOGY LABORATORY Gross Description Specimen A: Received is one formalin filled container labeled with the patient's name and designated left mandibular. The specimen consists of a curettage and desiccation biopsy measuring 5x3x1 mm. Jar 0. 4 6:09 PM CDT DERMATOPATHOLOGY LABORATORY Microscopic Description Specimen A. SKIN, left mandibular: There is epidermal hyperplasia beneath which there are vascular proliferation, fibroblasts, and an edematous stroma. 4 6:09 PM T DERMATOPATHOLOGY LABORATORY Disclaimer An external and internal positive and negative controls are appropriate for the histochemical, immunohistochemical and immunofluorescence stain(s) in this case (if any), except where stated explicitly. The performance characteristics of the stain(s) cited in this report were developed and its performance characteristic determined by the Dermatopathology Laboratory at [facility], directed by Dr. Anne Serna. These tests need not be, and therefore are not, approved by the [place] Food and Drug Administration. The tests are used for clinical purposes. Billing Codes Specimen Charges Stain Charges 93145 1 4 6:09 PM CDT DERMATOPATHOLOGY LABORATORY Embedded Images 6:09 PM CDT DERMATOPATHOLOGY LABORATORY Pathology/Cytolog y TISSUE SPECIMEN FROM SKIN / Unknown 07/01/2024 07/01/2024 4:30 PM CDT Radhames Hinson MD LAB - PATHOLOGY/CYTO LOGY ORDERABLES DERMATOPATHOLOGY LABORATORY [facility] - Department of Dermatology [facility] Medicine [address] [place] [address], [address] [phone]
--- OUTSIDE RECORDS SUMMARY | 2024-10-10 03:49 | XMS_ITS | Encounter Summary ---
Author Organization [facility] Healthcare Address [address] [place] [address] Care Team Providers Care Historian Dramatic Arts Name Role Phone Unavailable Primary Care Provider Unavailabl e Reason for Visit * Diagnostic Imaging (Routine) - Closed Specialty Diagnoses / Procedures Referred By Ganga t Referred To Contact Procedures Breast Imaging Diagnostic Outside Reference Referral, Self Referral ID Status Reason Start Date Expiration Date Visits Re quested Visits Authorized [id number] Closed 10/19/2022 11/18/2023 1 1 Encounter Details Date Type Department Care Team (Late st Contact Info) Description 06/25/2020 Hospital Encounter [facility] [address] [place] [id number] Social History Tobacco Use Types Packs/Day Years [...] 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 ??There will be no report generated by a [facility] Radiologist. Narrative [facility] - 10/19/2022 10:18 AM HEARING AID REPAIR TECHNICIAN EXAMINATION: ??Images For Reference Purposes Only us Self Referral IMG MAMMO PROCEDURES Final Resul t [facility] documented in this encounter Visit Diagnoses Not on filedocumented in this encounter
--- OUTSIDE RECORDS SUMMARY | 2024-10-10 03:49 | XMS_ITS | Clinical Summary ---
Author Organization [facility] [address] Address [address] [place] [address] Care Team Providers Care Roguer Name Role Phone Kamran Jacobo MD Unavailable [phone] Doroteo Bowden MD Unavailable Hermila Glynn MD PhD Unavailable + Tiffany Martínez MD Unavailable [phone] Teri Barlow MD Unavailable [phone] Rosy Desai MD Primary Care Provi chidi Allergies [...] monthIndications: Contraception Take 1 tablet by mouth drama director before breakfast Active tirzepatide (Mounjaro) 10 mg/0.5 [...] (04/05/2021): Added automatically from request for surgery [id number] 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 Lymphadenopathy [...] YRS) 12/31/2020,12/03/2020 Sars-CoV-2, Unspecified 12/03/2020 Tdap 03/08/2021,02/04/2010 Surgical History Surgery Date Site/Laterality Comments SOFT TISSUE CYST EXCISION PERCUTANEOUS NEEDLE BIOPSY MUSCLE 07/11/2022 N/A Medical History Medical History Date Comments GERD (gastroesophageal reflux disease) TAKES TUMS PRN Migraine Recent weight gain Date of last menstrual period (LMP) unknown TAKES CONTROL Presence of dental prosthetic device RETAINER (METAL) NON REMOVABLE Neuromuscular disease or syndrome (HCC) Family History Medical History Relation Name Comments Heart disease Brother Cancer Father Yaniv Hypertension Father Yaniv Diabetes Maternal Grandfather Arnulfo Heart disease Maternal Grandmother Alona Stroke Maternal Grandmother Alona Miscarriages / Stillbirths Mother Dominique Cancer Other Diabetes Other Heart attack Other Heart disease Other Hypertension Other Stroke Other Anesthesia problems Neg Hx Relation Name Status Comments Brother Father Yaniv Maternal Grandfather Arnulfo Maternal Grandmother Alona Mother Dominique Other Social History Tobacco Use Types Packs/Day Years [...] 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 file Not on file Obstetrics History Last Filed Vital Signs Vital Sign Reading Time Taken Comments Blood Pressure 110/80 04/29/2024 8:08 AM CDT Pulse 80 04/29/2024 8:08 AM CDT Temperature 36.2 ??C (97.2 ??F) 04/29/2024 8:08 AM CD T Respiratory Rate 16 07/25/2023 3:25 PM CREATIVE SERVICES SPECIALIST Oxygen Saturation 100% 04/29/2024 8:08 AM CDT Inhaled Oxygen Concentration - - Weight 70.2 kg (154 lb 11.2 oz) 04/29/2024 8:08 AM CDT Height 167.6 cm (5' 5.98 ) 04/29/2024 8:08 AM CD T Body Mass Index 24.98 04/29/2024 8:08 AM CDT Plan of Treatment Health Maintenance Due Date Last Done Comments Cervical Cancer Screening 1980 Hepatitis C Screening 1980 Varicella Vaccines (1 of 2 - 13+ 2-dose series) 11/14/1992 Hepatitis B Screening 11/14/1997 Regular Well Visit/Exam 18-64 11/14/1997 Covid-19 Vaccine (2023-2 5 season) 2024 12/31/2020, 12/03/2020, 12/03/2020 Influenza Vaccine (#1) 2024 Breast Cancer Screening-Mammogram 12/24/2024 12/25/2023, 11/28/2022 Depression Screening 04/29/2025 04/29/2024 DTaP/Tdap/Td Vaccine (3 - Td or Tdap) 03/08/2031 03/08/2021, 02/04/2010 HPV Vaccines Aged Out No longer eligi ble based on patient's age to complete this topic Pneumococcal vaccine <65 Aged Out No longer eligible based on patient's age to complete this topic Medical Devices Implanted Type Area Global Position System Technician Device Identifier Shelf Expiration Date Model / [...] compared to prior imaging studies performed at [facility] on 11/28/2022, and at [place], [place] on 06/25/2020 and 02/11/2021. The breasts [...] compared to prior imaging studies performed at [facility] on 11/28/2022, and at [place], [place] on 06/25/2020 and 02/11/2021. The breasts [...] Relevant to Health Maintenance Insurance [facility] [id number] [facility] [address] [facility] [address] [place], [place] [address]LINK [facility] [address] Advance Directives For more information, please contact: [phone] * Full Code (Latest Code Status on File) Date Activated Date Inactivated Comments 04/22/2021 9:35 AM 04/22/2021 2:43 PM Care Teams Roguer Relationship Specialty Start Date End Date Rosy Desai MD [address] [place] [address] PCP - General Family Practice 04/10/24 Kamran Jacobo MD [address] [place] [address] Consulting Physician Otolaryngology 04/22/21 Doroteo Bowden MD [address] [place] [address] Radiation Oncologist Radiation Oncology 03/02/22 Hermila Glynn MD PhD [address] [facility] [address] [place] [address] Medical Oncologist/Hematologi st Medical Oncology 06/15/22 Tiffany Martínez MD [address] [place] [address] Referring Physician Plastic Surgery 06/15/22 Teri Barlow MD [address] [place] [address] Consulting Physician Obstetrics and Gynecology 12/25/23
--- OUTSIDE RECORDS SUMMARY | 2024-10-10 03:49 | XMS_ITS | Encounter Summary ---
Author Organization [facility] Address [address] [place] [address] Care Team Providers Care Operations Forester Name Role Phone Unavailable Primary Care Provider Unavailabl e Encounter Details Date Type Department Care Team (Late st Contact Info) Description 07/01/2024 Lab Requisition [facility] - DermPath Lab [address] [place] [address] Radhames Hinson MD [address] [place] [address] Social History Tobacco Use Types [...] Priority Date/Time Associated Diagnosis Comments DERMATOPATHOLOGY Routine 07/01/2024 12:0 0 AM CDT documented in this encounter Results * DERMATOPATHOLOGY (07/01/2024 12:00 AM CDT) Case Report Dermatopathology Report ? Case: [id number] ? Authorizing Provider: ??Radhames Hinson MD ?Collected: ? 07/01/2024 12:00 AM ? Ordering Location: ? [facility] - ??Received: ?07/01/2024 04:30 PM ? DermPath Lab ? Pathologist: ? Carolyn Serna MD ? Specimen: ?Skin, left mandibular ? 4 6:09 PM CDT DERMATOPATHOLOGY LABORATORY Final Diagnosis Specimen A. SKIN, left mandibular: HEALING SKIN CHANGES (L90.5) 4 6:09 PM CDT DERMATOPATHOLOGY LABORATORY Clinical History [facility] site 4 6:09 PM CDT DERMATOPATHOLOGY LABORATORY Gross Description Specimen [...] and an edematous stroma. 4 6:09 PM CDT DERMATOPATHOLOGY LABORATORY Disclaimer An external and internal positive and negative controls are appropriate for the histochemical, immunohistochemical and immunofluorescence stain(s) in this case (if any), except where stated explicitly. The performance characteristics of the stain(s) cited in this report were developed and its performance characteristic determined by the Dermatopathology Laboratory at [facility], directed by Dr. Anne Serna. These tests need not be, and therefore are not, approved by the [place] Food and Drug Administration. The tests are used for clinical purposes. Billing Codes Specimen Charges Stain Charges 54186 1 4 6:09 PM CDT DERMATOPATHOLOGY LABORATORY Embedded Images 4 6:09 PM CDT DERMATOPATHOLOGY LABORATORY Pathology/Cytolog y TISSUE SPECIMEN FROM SKIN / Unknown 07/01/2024 07/01/2024 4:30 PM CDT Radhames Hinson MD LAB - PATHOLOGY/CYTO LOGY ORDERABLES DERMATOPATHOLOGY LABORATORY [facility] - Department of Dermatology [address], [address] Floor [address] [phone] documented in this encounter Visit Diagnoses Not on filedocumented in this encounter
--- OUTSIDE RECORDS SUMMARY | 2024-10-10 03:49 | XMS_ITS | Encounter Summary ---
Author Organization [facility] Healthcare Address [address] [place] [address] Care Team Providers Care Guest Service Team Leader Name Role Phone Unavailable Primary Care Provider Unavailabl e Reason for Visit * Diagnostic Imaging (Routine) - Closed Specialty Diagnoses / Procedures Referred By Ganga t Referred To Contact Procedures Breast Imaging US Outside Reference Referral, Self Referral ID Status Reason Start Date Expiration Date Visits Re quested Visits Authorized [id number] Closed 10/19/2022 11/18/2023 1 1 Encounter Details Date Type Department Care Team (Late st Contact Info) Description 02/11/2021 12:05 AM CDT Hospital Encounter [facility] Rad[facility] [address] [place] [id number] Social History Tobacco Use Types Packs/Day Years [...] 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 ??There will be no report generated by a [facility] Radiologist. Narrative [facility] - 10/19/2022 10:19 AM SUPERVISOR PRINT LINE EXAMINATION: ??Images For Reference Purposes Only us Self Referral IMG MAMMO PROCEDURES Final Resul t [facility] documented in this encounter Visit Diagnoses Not on filedocumented in this encounter
--- OUTSIDE RECORDS SUMMARY | 2024-10-10 03:49 | XMS_ITS | Clinical Summary ---
Author Organization [facility] Address [address] [place] [address] Care Team Providers Care Client Experience Specialist Name Role Phone Unavailable Primary Care Provider Unavailabl e Allergies No known active allergies Medications diclofenac sodium (VOLTAREN XR) 100 mg Extended Release 24 hour tablet Take 1 Tablet (100 mg) by mouth daily. 40 Tablet 02/21/2024 Active diclofenac sodium (VOLTAREN XR) 100 mg Extended Release 24 hour tablet Take 1 Tablet (100 mg) by mouth daily. 40 Tablet 02/21/2024 Active Active Problems No known active problems Encounters Date Type Department Care Team Description 10/08/2024 External Device Data [facility]STRACTION Provider, Abstract 09/23/2024 External Device Data [facility]CTION Provider, Abstract 07/21/2024 External Device Data [facility]STRACTION Provider, Abstract from Last 3 Months Social History Tobacco Use Types Packs/Day Years Used Date Smoking Tobacco: Never Smokeless Tobacco: Never Tobacco Cessation:Counseling Given: Not Answered Comments Unknown Sex and Gender Information Value Date Recorded Sex Assigned at Not on file Legal Sex Female 10:46 AM CDT Gender Identity Not on file Sexual Orientation Not on file Last Filed Vital Signs Vital Sign Reading Time Taken Comments Blood Pressure - - Pulse - - Temperature - - Respiratory Rate - - Oxygen Saturation - - Inhaled Oxygen Concentration - - Weight 70.8 kg (156 lb) 01/21/2024 1:28 PM CDT Height 167.6 cm (5' 6 ) 01/21/2024 1:28 PM CDT Body Mass Index 25.18 01/21/2024 1:28 PM CDT Plan of Treatment Health Maintenance Due Date Last Done Comments Pre-Diabetes and Diabetes Screening 1979 HEPATITIS B VACCINES (1 of 3 - 19+ 3-dose series) 11/14/1998 CERVICAL CANCER SCREENING 11/14/2009 INFLUENZA VACCINE (#1) 2024 COVID-19 Vaccine (3 - 2023-2 5 season) 2024 12/31/2020, 12/03/2020 BREAST CANCER SCREENING 12/24/2024 12/25/19 24, 11/28/2022 DTAP/TDAP/TD VACCINES (3 - T d or Tdap) 03/08/2031 03/08/2021, 02/04/2010 HPV VACCINES Aged Out No longer eligi ble based on patient's age to complete this topic PNEUMOCOCCAL VACCINE 0-64 YEARS Aged Out No longer eligible b ased on patient's age to complete this topic Insurance [employer] OPEN ACCESS [employer] OA
--- OUTSIDE RECORDS SUMMARY | 2024-10-10 03:49 | XMS_ITS | Data Portability ---
Author Organization [place] [email or web address], Main Office Address [address] [place] [address] Assessment No assessment recorded. Plan of Treatment Reminders Order Date Submit Date Provider Last Modified By Organization Details Last Modified Time Details Appointments None record ed. Lab None record ed. Referral None record ed. Procedures None record ed. Surgeries None record ed. Imaging None record ed. Medication Orders None record ed. Patient TargetsNo targets recorded. Patient InstructionsNo instructions recorded. Reason for Referral None Reported. Results Created Date Observation Date Name Description Value Unit Range Abnormal Flag Note LastModifiedBy Organization Detail LastModifiedTime 08/04/20 21 XR, shoul chidi, 2 or more view No observ ation record ed. [id number] [facility] [place] [address] [facility] [address], [place], [address], 11/16/2022 00:02:36 Result Notes None recorded. Procedures Surgical History None recorded. Imaging Results Imaging Date Name Status LastModified by Organiz ation Details LastModified Time 08/04/2021 XR, shoulder, 2 or more view completed [id number] [facility] [place] [address] [facility] [address], [place], [address], 11/16/2022 00:02:36 Procedure Notes None recorded. Medical Equipment None Reported. Medications Name Sig Start Date Stop Date Status Note LastModified by Organization Details LastModified Time ketorolac 10 mg tablet 08/04 completed Not Available Not Available Not Available hydrocodone 7.5 mg-acetamin ophen 325 mg tablet TAKE 1 TABLET BY MOUTH EVERY 6 HOURS FOR UP TO 5 DAYS NEEDED FOR PAIN 08/04 completed Not Available Not Available Not Available cephalexin 500 mg capsule 08/04 completed Not Available Not Available Not Available zolmitripta n 5 mg nasal spray active Not Available Not Available Not Available magnesium 400 mg (as magnesium oxide) capsule Take by oral route. 2020 active Not Available Not Available Not Avai lable Emgality Pen 120 mg/mL subcutaneou s pen injector active Not Available Not Available Not Available Simpesse 0.15 mg-30 mcg (84)/10 mcg(7) tablets,3 month dose pack TAKE 1 TABLET BY MOUTH EVERY DAY CONTINUOU SLY 08/04 completed Not Available Not Available Not Available ID NOW COVID-19 Test Kit DIRECTED 08/04 completed Not Available Not Available Not Available Vitals Date Recorded Body mass index (BMI) Body height Body weight Provider Name and Address Organization Details Last Updated DateTime 08/04/2021 31.5 kg/m2 167.64 cm 21453.51 g Not Available [facility] 2022 23:58:32 Social History Question Answer Notes LastModified by Organizat ion Details LastModified Time Tobacco Smoking Status Unknown If Ever Smoked Not Available [facility] 2022 23:57:33 What Is Your Level Of Alcohol Consumption? Occasional [id number] Information not available 2022 What Was The Date Of Your Most Recent Tobacco Screening? 08/04/2021 [id number] Information not available 2022 Sex: Unknown Functional Status None recorded. Mental Status None recorded. Family History Relationship Description Onset Age of this Age Resolved Age Notes LastModified by Organization Details LastModified Time Father Family history of malignant neoplasm [id number] Not available 2022 23:58:17 Father Hypertensive disorder [id number] Not available 2022 23:58:17 Maternal Grandmother Heart disease [id number] Not available 2022 23:58:17 Maternal Grandmother Family history of stroke [id number] Not available 2022 23:58:17 Medical History No medical history recorded. Gynecological HistoryNo gynecological history recorded. Obstetrics History GPAL:G 0 P 0 0 0 0 Past Encounters Encounter ID Performer Location Encounter Start Date Encounter Closed Date Diagnosis/Indication Diagnosis SNOMED-CT Code Diagnosis ICD10 Code Diagnosis Note [id number] [facility] [address] [place] [id number] 08/04/2021 00:00:00 08/04/2021 12:30:48 Health Concerns Section Related Observation LastModified by Organization Detai ls LastModified Time None Recorded Concern Status LastModified by Organization Details LastModified Time None Recorded Advance Directives Directive None Recorded Payers None recorded. Notes Date Note Type Note Provider Name and Address Organization Details Recorded Time 08/04/2021 text/html ShoulderReported bypatient.Hand Dominance:right Location:anterior; lateral Quality:throbbing; frequent Severity:moderate Timing:recurrent; occasional Duration:continuous since onset Aggravating Factors:pushing/pulli ng; throwing; damp weather Alleviating Factors:rest; elevation; stretching; NSAIDs Associated Symptoms:no weakness; no numbness; no tingling; no redness; no ecchymosis; no catching/locking; no popping/clicking; no buckling; no grinding; no instability; no radiation down arm; no drainage; no fever; no chills; no weight loss; no change in bowel/bladder habits;swelling;warmt h Not Available [place] [facility] 08/04/2021 12:30:48 OBGyn Episode No OBEpisode recorded.
--- OUTSIDE RECORDS SUMMARY | 2024-10-10 03:50 | XMS_ITS | Encounter Summary ---
Author Organization [facility] Address [address] [place] [address]. [place], [place] [address] [place] [address] Care Team Providers Care Cage Manager Name Role Phone Rosa Guevara DO Primary Care Provider Encounter Details Date Type Department Care Team (Latest Contact Info) Description 07/23/2018 Abstract [facility] , Malena Torres, Social History Tobacco Use Types Packs/Day Years Used Date Smoking Tobacco: Never Assessed Comments Unknown Sex and Gender Information Value Date Recorded Sex Assigned at Not on file Legal Sex Female 4:51 PM CDT Gender Identity Not on file Sexual Orientation Not on file documented as of this encounter Plan of Treatment Not on file documented as of this encounter Visit Diagnoses Not on filedocumented in this encounter Care Teams Cage Manager Relationship Specialty Start Date End Date Rosa Guevara DO [address] [place] [address] PCP - General 12/22/16 documented as of this encounter
--- OUTSIDE RECORDS SUMMARY | 2024-10-10 03:50 | XMS_ITS | Clinical Summary ---
Author Organization [facility] Address [address] [place] [address]. [place], [place] [address] [place] [address] Care Team Providers Care Machine Rigger Name Role Phone IsmaelRosa Primary Care Provider Allergies No known active allergies Medications docusate sodium (COLACE) 250 MG capsule Take 1 capsule by mouth daily. 8 Active Levonorgest-Eth Estrad -Day 0.15-0.03 &0.01 MG tablet Take 1 tablet by mouth daily. 7 Active Magnesium Oxide 400 MG Cap 7 Active polyethylene glycol (GLYCOLAX) 17 GM/SCOOP powder Take by mouth daily. 7 Active Galcanezumab-gn lm 120 MG/ML Solution Auto-injector Inject into the skin monthly. Active ZOMIG 5 MG Solution 0 Active UBRELVY 100 MG tablet TAKE 1 TABLET BY MOUTH NEEDED FOR MIGRAINE - MAY REPEAT IN 2 HOURS IF NEEDED 2 Active triamcinolone (KENALOG) 0.1 % cream APPLY THIN LAYER TOPICALLY TO THE AFFECTED AREA TWICE DAILY NEEDED FOR ITCHING 3 Active fluticasone (CUTIVATE) 0.05 % cream fluticasone propionate 0.05 % topical cream Active tirzepatide (MOUNJARO) 10 MG/0.5ML injection Inject 10 mg into the skin. 3 Active Active Problems Problem Noted Date Diagnosed Date Schwannoma of nerve of neck 10/10/2022 Chronic migraine without aura 03/06/2019 Assessment & Plan (03/06/2019 8:55 AM CDT): See neurology Elevated cholesterol 01/01/2018 Irritable bowel syndrome with constipation 09/15 Resolved Problems Problem Noted Date Diagnosed Date Resolved Date Preventative health care 10/10/2022 Need for prophylactic vaccin ation with combined stazazwrfs-gwbbpli-glowswwbv (DTP) vaccine 03/08/2021 03/14/2021 Preventative health care 03/08/2021 Encounter for preventive health examination 08/20/2014 05/28/2020 Immunizations Name Administration Dates Next Due Influenza (Generic) 07/08/2020(Deferred: Patient Refused),07/08/2020(Deferred: Patient Refused) Tdap (Adacel) 03/08/2021 Tdap (Generic) 02/04/2010 Family History Medical History Relation Comments Hyperlipidemia Father Hypertension Father brain tumor Father Breast Cancer Maternal Aunt Diabetes Maternal Grandfather Hyperlipidemia Mother Relation Status Comments Father of brain tu mor Maternal Aunt Maternal Grandfather Mother Social History Tobacco Use Types Packs/Day Years Used Date Smoking Tobacco: Never Smokeless Tobacco: Never Alcohol Use Standard Drinks/Week Comments Yes 0 (1 standard drink = 0.6 oz pur e alcohol) occ PHQ-2 Answer Date Recorded Patient Health Questionnaire-2 Score 0 10/11/2023 Comments Unknown Sex and Gender Information Value Date Recorded Sex Assigned at Not on file Legal Sex Female 4:51 PM CDT Gender Identity Not on file Sexual Orientation Not on file 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 Not on file Not on file Last Filed Vital Signs Vital Sign Reading Time Taken Comments Blood Pressure 120/74 10/11/2023 7:58 AM ENTERPRISE PROJECT MANAGER Pulse 66 03/06/2019 8:29 AM CDT Temperature - - Respiratory Rate - - Oxygen Saturation - - Inhaled Oxygen Concentration - - Weight 71.7 kg (158 lb) 10/11/2023 7:58 AM ENTERPRISE PROJECT MANAGER Height 166.4 cm (5' 5.5 ) 10/11/2023 7:58 AM ENTERPRISE PROJECT MANAGER Body Mass Index 25.89 10/11/2023 7:58 AM ENTERPRISE PROJECT MANAGER Plan of Treatment Health Maintenance Due Date Last Done Comments Cervical Cancer Screening Pap Smear (Age 30 to 64) Every 3 Years 1979 Hepatitis C 11/14/1997 Hepatitis B Vaccines (1 of 3 - 19+ 3-dose series) 11/14/1998 Cervical Cancer Screening Pap with HPV Testing (Age 30 to 64) Every 5 Years 11/14/2009 Cervical Cancer Screening with HPV 11/14/2009 Mammogram Screening 02/15/2024 02/14/2022 COVID-19 Vaccine ( season) 2024 08/24/2021, 12/31/2020, 12/03/2020 Influenza Adult (#1) 2024 Annual Physical 10/11/2024 10/11/2023, 09/18, 03/08/2021, Additional history exists PHQ-2 (Physician [place]) 10/11/2024 10/11/2023 DTaP, Tdap and Td Vaccines (3 - Td or Tdap) 03/08/2031 03/08/2021, 02/04/2010 HPV Vaccines Aged Out No longer eligi ble based on patient's age to complete this topic Meningococcal B Vaccine Aged Out No l onger eligible based on patient's age to complete this topic Meningococcal Vaccine Aged Out No royce jose manuel eligible based on patient's age to complete this topic Pneumococcal Vaccine: Pediatrics (0 to 5 Years) and At-Risk Patients (6 to 64 Years) Aged Out No longer eligible based on patient's age to complete this topic RSV Immunizations Under 20 Months Aged Out No longer eligible based on patient's age to complete this topic Procedures Procedure Name Priority Date/Time Associated Diagnosis Comments MAMMOGRAM GENERIC (SCAN ORDER) Routine 02/14/2022 from Last 3 Months or Most Recently Relevant to Health Maintenance Results * MAMMOGRAM (02/14/2022) Anatomical Region Laterality Modality Other us Documents Scanned SCANNING Final Result from Last 3 Months or Most Recently Relevant to Health Maintenance Insurance [employer] OPEN ACCESS [facility] [employer] OPEN ACCESS [facility] Care Teams Machine Rigger Relationship Specialty Start Date End Date Rosa Guevara DO [address] [place] [address] PCP - General 12/22/16
== END 2024-10-09 07:48 | disposition home or self-care (01) ==
LOC: CHSLAB 07:48
PROVIDERS: PCP Family Medicine; Visit Provider Family Medicine
DX: E87.5 Hyperkalemia (principal)
CPT/HCPCS: 36415; 80048

== ENCOUNTER 2024-10-27 01:50 | Day surgery (SDC) | payer OTHER, SELFPAY ==
[2024-10-10 13:40] VITALS: BMI 23.9
--- OUTSIDE RECORDS SUMMARY | 2024-10-27 01:55 | XMS_ITS | Encounter Summary ---
Author Organization [facility] Healthcare Address [address] [place] [address] Care Team Providers Care Liquefied Natural Gas Operator Name Role Phone Unavailable Primary Care Provider Unavailabl e Reason for Visit * Diagnostic Imaging (Routine) - Closed Specialty Diagnoses / Procedures Referred By Ganga t Referred To Contact Procedures Breast Imaging Diagnostic Outside Reference Referral, Self Referral ID Status Reason Start Date Expiration Date Visits Re quested Visits Authorized [id number] Closed 10/19/2022 11/18/2023 1 1 Encounter Details Date Type Department Care Team (Late st Contact Info) Description 06/25/2020 Hospital Encounter [facility]iology [facility] [address] [place] [address] Social History Tobacco Use Types Packs/Day Years [...] 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 There will be no report generated by a [facility] Radiologist. Narrative [facility] - 10/19/2022 10:18 AM APPAREL DESIGNER EXAMINATION: Images For Reference Purposes Only us Self Referral IMG MAMMO PROCEDURES Final Resul t [facility] documented in this encounter Visit Diagnoses Not on filedocumented in this encounter
--- OUTSIDE RECORDS SUMMARY | 2024-10-27 01:55 | XMS_ITS | Clinical Summary ---
Author Organization [facility] [employer] Address [address] [place] [address] Care Team Providers Care Batch Room Technician Name Role Phone Kamran Jacobo MD Unavailable [phone] Doroteo Bowden MD Unavailable Hermila Glynn MD PhD Unavailable + Tiffany Martínez MD Unavailable [phone] Teri Barlow MD Unavailable [phone] Rosy Desai MD Primary Care Provi chidi [...] monthIndications: Contraception Take 1 tablet by mouth gripper installer before breakfast Active tirzepatide (Mounjaro) 10 mg/0.5 [...] (04/05/2021): Added automatically from request for surgery [id number] 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 Lymphadenopathy [...] 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 on file Not on file Obstetrics History Last Filed Vital Signs Vital Sign Reading Time Taken Comments Blood Pressure 110/80 04/29/2024 8:08 AM CDT Pulse 80 04/29/2024 8:08 AM CDT Temperature 36.2 C (97.2 F) 04/29/2024 8:08 AM CDT Respiratory Rate 16 07/25/2023 3:25 PM NUT PROCESSING SUPERVISOR Oxygen Saturation 100% 04/29/2024 8:08 AM CDT [...] this topic Medical Devices Implanted Type Area [employer] Device Identifier Shelf Expiration Date Model / [...] prior imaging studies performed at [facility] on 11/28/2022, and at [place], [place] on 06/25/2020 and 02/11/2021. The breasts are heterogeneously dense, which may obscure small masses. There is no suspicious abnormality in either breast. Impression: There is no mammographic evidence of malignancy. Annual screening mammography is recommended. If supplemental screening is desired, breast MRI would be recommended in this patient with heterogeneously dense breasts. OVERALL FINAL ASSESSMENT: BI-RADS CATEGORY 1: Negative. Procedure Note Keiry Higgins MD - 12/25/2023 Mammogram Technique: Bilateral Digital Breast Tomosynthesis, Bilateral C-view 2D Screening mammogram. Views obtained: bilateral craniocaudal and bilateral mediolateral oblique. Computer Aided Detection was performed. Mammogram Findings: The present examination has been compared to prior imaging studies performed at [facility] on 11/28/2022, and at [place], [place] on 06/25/2020 and 02/11/2021. The breasts [...] Most Recently Relevant to Health Maintenance Insurance [facility] [id number] [facility] [id number] [facility] [id number] Advance Directives For more information, please contact: [phone] * Full Code (Latest Code Status on File) Date Activated Date Inactivated Comments 04/22/2021 9:35 AM 04/22/2021 2:43 PM Care Teams Batch Room Technician Relationship Specialty Start Date End Date Rosy Desai MD [address] [facility] [address] [place] [address] PCP - General Family Practice 04/10/24 Kamran Jacobo MD [address] [place] [address] Consulting Physician Otolaryngology 04/22/21 Doroteo Bowden MD [address] [place] [address] Radiation Oncologist Radiation Oncology 03/02/22 Hermila Glynn MD PhD [address] [place] [address] Medical Oncologist/Hematologi st Medical Oncology 06/15/22 Tiffany Martínez MD [address] [place] [address] Referring Physician Plastic Surgery 06/15/22 Teri Barlow MD [address] [place] [address] Consulting Physician Obstetrics and Gynecology 12/25/23
--- OUTSIDE RECORDS SUMMARY | 2024-10-27 01:55 | XMS_ITS | Encounter Summary ---
Author Organization [facility] Address [address] [place] [address] Care Team Providers Care Face Boss Name Role Phone Rosa Guevara DO Primary Care Provider [phone] Encounter Details Date Type Department Care Team (Latest Contact Info) Description 07/23/2018 Abstract [facility] , Malena Torres MD Social History Tobacco Use Types Packs/Day Years [...] on filedocumented in this encounter Care Teams Face Boss Relationship Specialty Start Date End Date Rosa Guevara DO [address] [place] [address] PCP - General 12/22/16 documented as of this encounter
--- OUTSIDE RECORDS SUMMARY | 2024-10-27 01:55 | XMS_ITS | Encounter Summary ---
Author Organization [facility] Healthcare Address [address] [place] [address] Care Team Providers Care Music Intern Name Role Phone Unavailable Primary Care Provider Unavailabl e Reason for Visit * Diagnostic Imaging (Routine) - Closed Specialty Diagnoses / Procedures Referred By Ganga t Referred To Contact Procedures Breast Imaging US Outside Reference Referral, Self Referral ID Status Reason Start Date Expiration Date Visits Re quested Visits Authorized [id number] Closed 10/19/2022 11/18/2023 1 1 Encounter Details Date Type Department Care Team (Late st Contact Info) Description 06/25/2020 12:05 AM CDT Hospital Encounter [facility]) [address] [place] [id number] Social History Tobacco Use Types Packs/Day Years [...] 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. There will be no report generated by a [facility] Radiologist. Narrative [facility] - 10/19/2022 10:19 AM CONDUIT INSTALLER EXAMINATION: Images For Reference Purposes Only us Self Referral IMG MAMMO PROCEDURES Final Resul t [facility] documented in this encounter Visit Diagnoses Not on filedocumented in this encounter
--- OUTSIDE RECORDS SUMMARY | 2024-10-27 01:55 | XMS_ITS | Encounter Summary ---
Author Organization [facility] Address [address] [place] [address] Care Team Providers Care Functional Mental Disability Teacher Name Role Phone Unavailable Primary Care Provider Unavailabl e Encounter Details Date Type Department Care Team (Late st Contact Info) Description 07/01/2024 Lab Requisition [facility] - DermPath Lab [address] [place] [phone] Radhames Hinson MD [address] [place] [address] Social History Tobacco Use Types [...] 12:00 AM CDT) Case Report Dermatopathology Report Case: [id number] Authorizing Provider: Radhames Hinson MD Collected: 07/01/2024 12:00 AM Ordering Location: [facility] Physician [facility] - Received: 07/01/2024 04:30 PM DermPath Lab Pathologist: Carolyn Serna MD Specimen: Skin, left mandibular 4 6:09 PM CDT DERMATOPATHOLOGY LABORATORY Final Diagnosis Specimen A. SKIN, left mandibular: HEALING SKIN CHANGES (L90.5) 4 6:09 PM CDT DERMATOPATHOLOGY LABORATORY Clinical History BCC bx site 6:09 PM CDT DERMATOPATHOLOGY LABORATORY Gross Description Specimen A: Received is one formalin filled container labeled with the patient's name and designated left mandibular. The specimen consists of a curettage and desiccation biopsy measuring 5x3x1 mm. Jar 0. 6:09 PM CDT DERMATOPATHOLOGY LABORATORY Microscopic Description Specimen A. SKIN, left mandibular: There is epidermal hyperplasia beneath which there are vascular proliferation, fibroblasts, and an edematous stroma. 6:09 PM CDT DERMATOPATHOLOGY LABORATORY Disclaimer An external and internal positive and negative controls are appropriate for the histochemical, immunohistochemical and immunofluorescence stain(s) in this case (if any), except where stated explicitly. The performance characteristics of the stain(s) cited in this report were developed and its performance characteristic determined by the Dermatopathology Laboratory at [facility], directed by Dr. Anne Serna. These tests need not be, and therefore are not, approved by the [place] Food and Drug Administration. The tests are used for clinical purposes. Billing Codes Specimen Charges Stain Charges 19215 1 6:09 PM CDT DERMATOPATHOLOGY LABORATORY Embedded Images 6:09 PM CDT DERMATOPATHOLOGY LABORATORY Pathology/Cytolog y TISSUE SPECIMEN FROM SKIN / Unknown 07/01/2024 07/01/2024 4:30 PM CDT Radhames Hinson MD LAB - PATHOLOGY/CYTO LOGY ORDERABLES DERMATOPATHOLOGY LABORATORY [facility] - Department of Dermatology [address], [address] [phone] documented in this encounter Visit Diagnoses Not on filedocumented in this encounter
--- OUTSIDE RECORDS SUMMARY | 2024-10-27 01:55 | XMS_ITS | Encounter Summary ---
Author Organization [facility] Healthcare Address [address] [place] [address] Care Team Providers Care Virtual Reality Specialist Name Role Phone Unavailable Primary Care Provider Unavailabl e Reason for Visit * Diagnostic Imaging (Routine) - Closed Specialty Diagnoses / Procedures Referred By Ganga t Referred To Contact Procedures Breast Imaging US Outside Reference Referral, Self Referral ID Status Reason Start Date Expiration Date Visits Re quested Visits Authorized [id number] Closed 10/19/2022 11/18/2023 1 1 Encounter Details Date Type Department Care Team (Late st Contact Info) Description 02/11/2021 12:05 AM CDT Hospital Encounter [facility]) [address] [place] [phone] Social History Tobacco Use Types Packs/Day Years [...] 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 There will be no report generated by a [facility] Radiologist. Narrative [facility] - 10/19/2022 10:19 AM SUPERVISOR PAPER MACHINE EXAMINATION: Images For Reference Purposes Only us Self Referral IMG MAMMO PROCEDURES Final Resul t [facility] documented in this encounter Visit Diagnoses Not on filedocumented in this encounter
--- OUTSIDE RECORDS SUMMARY | 2024-10-27 01:55 | XMS_ITS | Clinical Summary ---
Author Organization [facility] Address [address] [place] [address] Care Team Providers Care Tin Can Laborer Name Role Phone Unavailable Primary Care Provider [...] External Device Data STL ABSTRACTION Provider, Abstract 10/08/2024 External Device Data STL ABSTRACTION Provider, [...] patient's age to complete this topic Insurance [employer] OPEN [employer]ESS [employer]
--- OUTSIDE RECORDS SUMMARY | 2024-10-27 01:55 | XMS_ITS | Encounter Summary ---
Author Organization [facility] Healthcare Address [address] [place] [address] Care Team Providers Care Front Services Agent Name Role Phone Unavailable Primary Care Provider Unavailabl e Reason for Visit * Diagnostic Imaging (Routine) - Closed Specialty Diagnoses / Procedures Referred By Ganga t Referred To Contact Procedures Breast Imaging Screening Outside Reference Referral, Self Referral ID Status Reason Start Date Expiration Date Visits Re quested Visits Authorized [id number] Closed 10/19/2022 11/18/2023 1 1 Encounter Details Date Type Department Care Team (Late st Contact Info) Description 05/26/2020 Hospital Encounter [facility]) [address] [place] [phone] Social History Tobacco Use Types Packs/Day Years [...] 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 There will be no report generated by a [facility] Radiologist. Narrative [facility] - 10/19/2022 10:19 AM OFFICE AUTOMATION TECHNICIAN EXAMINATION: Images For Reference Purposes Only us Self Referral IMG MAMMO PROCEDURES Final Resul t [facility] documented in this encounter Visit Diagnoses Not on filedocumented in this encounter
--- OUTSIDE RECORDS SUMMARY | 2024-10-27 01:55 | XMS_ITS | Referral Summary ---
Author Organization [facility] Address [address] [place] [address] Care Team Providers Care Promotor Group Ticket Sales Name Role Phone Unavailable Primary Care Provider Unavailabl e Source Comments [facility],non-owned Affiliates and Associated Physician Practices is amultiple site organization consisting of ambulatory clinics and hospital sitesin [place], [place], [place] and [place]. This disclosure is being madepursuant to the Care Everywhere program and may not contain all information available regarding this patient. Last updated 18.[facility] Social History Tobacco Use Types Packs/Day Years Used Date Smoking Tobacco: Never Assessed Sex and Gender Information Value Date Recorded Sex Assigned at Not on file Gender Identity Not on file Sexual Orientation Not on file Plan of Treatment Not on file Marianna Bernal Personal/Famil y Self 1980
--- OUTSIDE RECORDS SUMMARY | 2024-10-27 01:55 | XMS_ITS | Encounter Summary ---
Author Organization [facility] Address [address] [place] [address] Care Team Providers Care Floral Assistant Name Role Phone Unavailable Primary Care Provider Unavailabl e Encounter Details Date Type Department Care Team (Late st Contact Info) Description 06/17/2024 Lab Requisition [facility] - DermPath Lab [address] [place] [phone] Radhames Hinson MD [address] [place] [address] Social History Tobacco Use Types [...] AM CDT) Case Report Dermatopathology Report Case: [id number] Authorizing Provider: Radhames Hinson MD Collected: 06/17/2024 12:00 AM Ordering Location: [facility] Physician [facility] - Received: 06/17/2024 03:35 PM DermPath Lab Pathologist: Carolyn Serna MD Specimens: A) - Skin, left mandibular B) - Skin, left nasal bridge 5:10 PM CDT DERMATOPATHOLOGY LABORATORY Final Diagnosis Specimen A. SKIN, left mandibular: BASAL CELL CARCINOMA, NODULAR TYPE (C44.319) Specimen B. 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 Jar 0. 5:10 PM CDT DERMATOPATHOLOGY LABORATORY Microscopic Description [...] basal cell carcinoma. Clinicopathologic correlation is recommended. 5:10 PM CDT DERMATOPATHOLOGY LABORATORY Disclaimer An external and internal positive and negative controls are appropriate for the histochemical, immunohistochemical and immunofluorescence stain(s) in this case (if any), except where stated explicitly. The performance characteristics of the stain(s) cited in this report were developed and its performance characteristic determined by the Dermatopathology Laboratory at [facility], directed by Dr. Anne Serna. These tests need not be, and therefore are not, approved by the [place] Food and Drug Administration. The tests are used for clinical purposes. Billing Codes Specimen Charges Stain Charges 22021 81336 1 1 5:10 PM CDT DERMATOPATHOLOGY LABORATORY Embedded Images 5:10 PM CDT DERMATOPATHOLOGY LABORATORY Pathology/Cytology TISSUE SPECIMEN FROM SKIN / Unknown 06/17/2024 06/17/2024 3:35 PM CDT Miscellaneous samples (specimen) TISSUE SPECIMEN FROM SKIN / Unknown 06/17/2024 06/17/2024 3:35 PM CDT Radhames Hinson MD LAB - PATHOLOGY/CYTO LOGY ORDERABLES DERMATOPATHOLOGY LABORATORY [facility] - Department of Dermatology [facility] [address] [place] [address], [address] [phone] documented in this encounter Visit Diagnoses Not on filedocumented in this encounter
--- OUTSIDE RECORDS SUMMARY | 2024-10-27 01:55 | XMS_ITS | Clinical Summary ---
Author Organization [facility] Address [address] [place] [address] Care Team Providers Care Irrigation District Manager Name Role Phone Unavailable Primary Care Provider Unavailabl e Source Comments [facility],non-owned Affiliates and Associated Physician Practices is amultiple site organization consisting of ambulatory clinics and hospital sitesin [place], [place], [place] and [place]. This disclosure is being madepursuant to the Care Everywhere program and may not contain all information available regarding this patient. Last updated 18.[facility] Social History Tobacco Use Types Packs/Day Years [...] - 19+ 3-dose series) 11/14/1998 COVID-19 VACCINE (2023-2 5 season) 2024 INFLUENZA VACCINE (#1) 2024 [...]
--- OUTSIDE RECORDS SUMMARY | 2024-10-27 01:55 | XMS_ITS | Referral Summary ---
Author Organization [facility] [address] Address [address] [place] [address] Care Team Providers Care Endoscope Technician Name Role Phone Kamran Jacboo MD Unavailable [phone] Doroteo Bowden MD Unavailable Hermila Glynn MD PhD Unavailable + Tiffany Martínez MD Unavailable [phone] Teri Barlow MD Unavailable [phone] Rosy Desai MD Primary Care Provi chidi [...] monthIndications: Contraception Take 1 tablet by mouth clinical sciences professor before breakfast Active tirzepatide (Mounjaro) 10 mg/0.5 [...] (04/05/2021): Added automatically from request for surgery [id number] 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 Lymphadenopathy [...] 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 file Not on file Last Filed Vital Signs Vital Sign Reading Time Taken Comments Blood Pressure 110/80 04/29/2024 8:08 AM CDT Pulse 80 04/29/2024 8:08 AM CDT Temperature 36.2 C (97.2 F) 04/29/2024 8:08 AM CDT Respiratory Rate 16 07/25/2023 3:25 PM MULTIMEDIA ASSISTANT Oxygen Saturation 100% 04/29/2024 8:08 AM CDT Inhaled Oxygen Concentration - - Weight 70.2 kg (154 lb 11.2 oz) 04/29/2024 8:08 AM CDT Height 167.6 cm (5' 5.98 ) 04/29/2024 8:08 AM CD T Body Mass Index 24.98 04/29/2024 8:08 AM CDT Plan of Treatment Not on file Medical Devices Implanted Type Area Employee Representative Device Identifier Shelf Expiration Date Model / [...] compared to prior imaging studies performed at [facility] on 11/28/2022, and at [place], [place] on 06/25/2020 and 02/11/2021. The breasts [...] compared to prior imaging studies performed at [facility] on 11/28/2022, and at [place], [place] on 06/25/2020 and 02/11/2021. The breasts [...] Most Recently Relevant to Health Maintenance Insurance [employer] [id number] [employer] [id number] [employer] [id number] [facility] [id number] Advance Directives For more information, please contact: [phone] * Full Code (Latest Code Status on File) Date Activated Date Inactivated Comments 04/22/2021 9:35 AM 04/22/2021 2:43 PM Care Teams Endoscope Technician Relationship Specialty Start Date End Date Rosy Desai MD [address] [address] PCP - General Family Practice 04/10/24 Kamran Jacobo MD [address] [place] [address] Consulting Physician Otolaryngology 04/22/21 Doroteo Bowden MD [address] [place] [address] Radiation Oncologist Radiation Oncology 03/02/22 Hermila Glynn MD PhD [address] [facility] [address] [place] [address] Medical Oncologist/Hematologi st Medical Oncology 06/15/22 Tiffany Martínez MD [address] [place] [address] [place] [address] Referring Physician Plastic Surgery 06/15/22 Teri Barlow MD [address] [place] [address] [place] [address] Consulting Physician Obstetrics and Gynecology 12/25/23
--- OUTSIDE RECORDS SUMMARY | 2024-10-27 01:55 | XMS_ITS | Patient Health Summary ---
Author Organization [facility] Address [address] [place] [address] Care Team Providers Care Paunch Trimmer Name Role Phone Unavailable Primary Care Provider Unavailabl e Note from [facility],non-owned Affiliates and Associated Physician Practices is amultiple site organization consisting of ambulatory clinics and hospital sitesin [place], [place], [place] and [place]. This disclosure is being madepursuant to the Care Everywhere program and may not contain all information available regarding this patient. Last updated 18.[facility] [employer] Social History Tobacco Use Types Packs/Day Years [...] period is included. Case Report Dermatopathology Report Case: [id number] Authorizing Provider: Radhames Hinson MD Collected: 07/01/2024 12:00 AM Ordering Location: [facility] - Received: 07/01/2024 04:30 PM DermPath Lab Pathologist: Carolyn Serna MD Specimen: Skin, left mandibular 6:09 PM CDT DERMATOPATHOLOGY LABORATORY Final Diagnosis Specimen A. SKIN, left mandibular: HEALING SKIN CHANGES (L90.5) 6:09 PM CDT DERMATOPATHOLOGY LABORATORY Clinical History [...] determined by the Dermatopathology Laboratory at [facility], directed by Dr. Anne Serna. These tests need not be, and therefore are not, approved by the [place] Food and Drug Administration. The tests are used for clinical purposes. Billing Codes Specimen Charges Stain Charges 53351 1 4 6:09 PM CDT DERMATOPATHOLOGY LABORATORY Embedded Images 6:09 PM CDT DERMATOPATHOLOGY LABORATORY Pathology/Cytolog y TISSUE SPECIMEN FROM SKIN / Unknown 07/01/2024 07/01/2024 4:30 PM CDT Radhames Hinson MD LAB - PATHOLOGY/CYTO LOGY ORDERABLES DERMATOPATHOLOGY LABORATORY [facility] - Department of Dermatology [address], [address] [phone]
--- OUTSIDE RECORDS SUMMARY | 2024-10-27 01:55 | XMS_ITS | Encounter Summary ---
Author Organization [facility] Healthcare Address [address] [place] [address] Care Team Providers Care Service Correspondent Name Role Phone Unavailable Primary Care Provider Unavailabl e Reason for Visit * Diagnostic Imaging (Routine) - Closed Specialty Diagnoses / Procedures Referred By Ganga t Referred To Contact Procedures Breast Imaging Diagnostic Outside Reference Referral, Self Referral ID Status Reason Start Date Expiration Date Visits Re quested Visits Authorized [id number] Closed 10/19/2022 11/18/2023 1 1 Encounter Details Date Type Department Care Team (Late st Contact Info) Description 02/11/2021 Hospital Encounter [facility]) [address] [place] [phone] Social History Tobacco Use Types Packs/Day Years [...] 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 There will be no report generated by a [facility] Radiologist. Narrative [facility] - 10/19/2022 10:19 AM CARPET INSTALLER EXAMINATION: Images For Reference Purposes Only us Self Referral IMG MAMMO PROCEDURES Final Resul t [facility] documented in this encounter Visit Diagnoses Not on filedocumented in this encounter
--- OUTSIDE RECORDS SUMMARY | 2024-10-27 01:55 | XMS_ITS | Clinical Summary ---
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 on file Not on file Last Filed Vital Signs Vital Sign Reading Time Taken Comments Blood Pressure 120/74 10/11/2023 7:58 AM STICKER ON Pulse 66 03/06/2019 8:29 AM CDT Temperature - - Respiratory Rate - - Oxygen Saturation - - Inhaled Oxygen Concentration - - Weight 71.7 kg (158 lb) 10/11/2023 7:58 AM STICKER ON Height 166.4 cm (5' 5.5 ) 10/11/2023 7:58 AM STICKER ON Body Mass Index 25.89 10/11/2023 7:58 AM STICKER ON Plan of Treatment Health Maintenance Due Date [...] 08/24/2021, 12/31/2020, 12/03/2020 Influenza Adult (#1) 2024 PHQ-2 (Physician [place]) 09/17/2024 10/11/2023 Annual Physical 10/11/2024 10/11/2023, 09/18, 03/08/2021, Additional history exists PHQ-2 (Physician [place]) 10/11/2024 10/11/2023 DTaP, Tdap and Td Vaccines [...] Most Recently Relevant to Health Maintenance Insurance [employer] OPEN ACCESS [facility] [employer] [facility] Care Teams Wastewater Manager Relationship Specialty Start Date End Date Rosa Guevara DO [address] [place] [address] PCP - General 12/22/16
[2024-10-27 07:02] VITALS: BP 117/80; PULSE 81; RESP 18; TEMP 36.2; O2SAT 100; BMI 24.0
[2024-10-27 07:07] LABS: BEDSIDEPREGUCG Negative (Negative)
--- NOTE | 2024-10-27 07:11 | P.PNAN_ITS ---
Anes - Initial Pre Proc Eval Procedure: Operation Date: 10/27/24 08:00 Proposed Procedures p Screening Colonoscopy - Daniele Mclain DO Date/Time: 10/27/24 07:11 Surgeon: Daniele Mclain DO Pre Op Diagnosis: Screening for malignant neoplasm of colon Patient Data Age: 43 Gender: F Height: 1.68 m Weight: 67.5 kg Last Vital Signs Temp 36.2 C L 10/27/24 07:02 Pulse 81 10/27/24 07:02 Resp 18 10/27/24 07:02 BP 117/80 10/27/24 07:02 Pulse Ox 100 10/27/24 07:02 O2 Del Method Room Air 10/27/24 07:02 Allergies Allergy/AdvReac Type Severity Reaction Status Date / Time No Known Allergies Allergy Verified 10/27/24 06:53 Home Medications ?Medication ?Instructions ?Recorded ?Confirmed ?Type L norgest/E estradiol-E estrad 1 tablet PO DAILY 09/27/23 10/27/24 History 0.15 mg-30 mcg (84)/10 mcg(7) tabs,3mos (Simpesse) magnesium oxide 400 mg (241.3 mg 400 mg PO DAILY 09/27/23 10/27/24 History magnesium) tablet tirzepatide 10 mg/0.5 mL 10 mg subcut WEEKLY 09/27/23 10/10/24 History subcutaneous pen injector (Mounjaro) valacyclovir 500 mg tablet 500 mg PO DAILY 09/27/23 10/27/24 History (Valtrex) atogepant 60 mg tablet (Qulipta) 60 mg PO DAILY #30 tabs 03/27/24 10/27/24 Rx atogepant 60 mg tablet (Qulipta) 60 mg PO DAILY #8 tabs 03/27/24 10/27/24 Rx zolmitriptan 5 mg tablet (Zomig) 5 mg PO ONCE #14 tabs 03/27/24 10/10/24 Rx docusate sodium 100 mg capsule 100 mg PO DAILY 09/29/24 10/27/24 History (Colace) famotidine 20 mg tablet (Pepcid AC) 20 mg PO DAILY 09/29/24 10/27/24 History ubrogepant 100 mg tablet (Ubrelvy) 100 mg PO ONCE 09/29/24 10/10/24 History Laboratory Tests 10/27/24 07:02 POC Urine HCG, Qual Negative (Negative) Patient hx anesthesia problems: none Family hx anesthesia problems: none Results Review: All pre-operative results and documents have been reviewed as part of the pre- operative evaluation. FOR[facility]LY [facility] Past Medical History Medical History Numbness in feet Migraine syndrome Migraine Surgical History Surgical History H/O excision of mass (~04/2021) Family History Family History Father Brain tumor Hypertension Mother Hyperlipidemia Social History Social History Smoking status: Never smoker Alcohol intake: never Substance use: never Substance use type: does not use Do You Feel Safe in your Home?: Yes Lack of Transportation: No Lack of Food: Never True Current Housing: I Have Housing Concerned About Future Housing: No Difficulty Paying Gas/Electric Bills: No Difficulty Paying for Meds: No Currently Unemployed: No Education: Master's Degree or Higher Difficulty w/ Childcare or Family Care: No Living arrangements: with family 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 Informed Consent: The patient's anesthetic plan and its attendant risks and benefits were discussed with the patient/family/POA. Questions were solicited and answers provided to the satisfaction of the patient/family/POA.
[2024-10-27] MEDS: LACTATED RINGERS 1,000 ML 150 ML IV CONT (07:14)
--- NOTE | 2024-10-27 08:00 | PM.IMHP ---
H&P: HPI History of Present Illness Date/Time: 10/27/24 08:00 Chief Complaint: Screening for colorectal cancer Narrative: this is a 43-year-old woman who presents for colonoscopy. She did have a colonoscopy about 12 years ago which was normal. She had 1 episode of hematochezia about 3 months ago but that resolved. She denies any family history of colon cancer. Review of Systems Review of Systems: All systems reviewed & are unremarkable except as noted in HPI and below Constitutional: Constitutional: Denies chills, Denies fever(s), Denies headache(s) and Denies weight loss Eyes: Eyes: Denies change in vision ENT: Denies dizziness, Denies headache(s), Denies neck mass and Denies throat swelling Cardiovascular: Cardiovascular: Denies chest pain, Denies lightheadedness and Denies dyspnea Respiratory: Respiratory: Denies cough, Denies dyspnea and Denies wheezing Gastrointestinal: Gastrointestinal: Denies abdominal pain, Denies change in bowel habits, Denies nausea and Denies vomiting Genitourinary: Genitourinary: Denies hematuria and Denies dysuria Musculoskeletal: Musculoskeletal: Reports as per HPI Integumentary/Breasts: Skin/Breast: Reports as per HPI Neurologic: Denies dizziness and Denies headache(s) Allergic/Immunologic: Allergic/Immunologic: Denies throat swelling and Denies wheezing PMFSH Past Medical History Medical History Numbness in feet Migraine syndrome Migraine Surgical History Surgical History H/O excision of mass (~04/2021) Family History Family History Father Brain tumor Hypertension Mother Hyperlipidemia Social History Social History Smoking status: Never smoker Alcohol intake: never Substance use: never Substance use type: does not use Do You Feel Safe in your Home?: Yes Lack of Transportation: No Lack of Food: Never True Current Housing: I Have Housing Concerned About Future Housing: No Difficulty Paying Gas/Electric Bills: No Difficulty Paying for Meds: No Currently Unemployed: No Education: Master's Degree or Higher Difficulty w/ Childcare or Family Care: No Living arrangements: with family 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 Gender identity (if verbalized by the patient): Female Meds Home Medications and Allergies Home Medications ?Medication ?Instructions ?Recorded ?Confirmed ?Type L norgest/E estradiol-E estrad 1 tablet PO DAILY 09/27/23 10/27/24 History 0.15 mg-30 mcg (84)/10 mcg(7) tabs,3mos (Simpesse) magnesium oxide 400 mg (241.3 mg 400 mg PO DAILY 09/27/23 10/27/24 History magnesium) tablet tirzepatide 10 mg/0.5 mL 10 mg subcut WEEKLY 09/27/23 10/27/24 History subcutaneous pen injector (Mounjaro) valacyclovir 500 mg tablet 500 mg PO DAILY 09/27/23 10/27/24 History (Valtrex) atogepant 60 mg tablet (Qulipta) 60 mg PO DAILY #30 tabs 03/27/24 10/27/24 Rx atogepant 60 mg tablet (Qulipta) 60 mg PO DAILY #8 tabs 03/27/24 10/27/24 Rx zolmitriptan 5 mg tablet (Zomig) 5 mg PO ONCE #14 tabs 03/27/24 10/10/24 Rx docusate sodium 100 mg capsule 100 mg PO DAILY 09/29/24 10/27/24 History (Colace) famotidine 20 mg tablet (Pepcid AC) 20 mg PO DAILY 09/29/24 10/27/24 History ubrogepant 100 mg tablet (Ubrelvy) 100 mg PO ONCE 09/29/24 10/10/24 History Allergies Allergy/AdvReac Type Severity Reaction Status Date / Time No Known Allergies Allergy Verified 10/27/24 06:53 Vital Signs Vital Signs - 24 hr 10/27/24 07:02 Temperature 97.1 F L Pulse Rate 81 Respiratory Rate 18 Blood Pressure 117/80 Pulse Oximetry 100 Oxygen Delivery Room Air Exam Const: General: no acute distress and alert Orientation/consciousness: patient oriented x3 HENMT: Head: normocephalic and atraumatic Ears: hearing grossly normal bilaterally Face/Nose/Sinus: Normal nares present Mouth: Yes Normal oral and palatal mucosa present Eyes: Periorbital: periorbital findings normal Sclera: sclerae normal EOM: EOMs intact bilaterally Neck: Neck: normal visual inspection, no lymphadenopathy and trachea midline Chest: Chest palpation & inspection: normal inspection of the chest Resp: Effort & Inspection: normal respiratory effort Auscultation: clear to auscultation bilaterally Cardio: Jugular venous distension: no JVD Rate: regular rate Rhythm: regular rhythm Heart sounds: S1 normal heart sound present and S2 normal heart sound present Peripheral pulses: Peripheral pulses 2+ throughout GI: Inspection: normal to inspection GI Palp: Yes Soft to palpation, No Tenderness to palpation present (GI), No Guarding due to palpation present (GI) and No Rebound tenderness present Percussion: Yes normal to percussion Auscultation: normal bowel sounds : General: Yes no CVA tenderness Back/Spine/Pelvis: Back: no CVA tenderness Neuro: General: patient oriented x3, no focal motor deficits and CN's II-XI intact bilaterally Cognition (Neuro): normal cognition Speech: normal speech Motor exam (neuro): 5/5 motor strength present throughout Extrem: General: capillary refill normal and no clubbing, cyanosis or edema Assessment and Plan Assessment and plan (1) Screening for colorectal cancer: Code(s): Z12.11 - Encounter for screening for malignant neoplasm of colon; Z12.12 - Encounter for screening for malignant neoplasm of rectum Status: Acute Assessment and Plan: I have recommended colonoscopy. I have discussed the procedure, risks, benefits, and alternatives. Questions were answered. Patient is agreeable to proceed.
[2024-10-27 08:28] VITALS: BP 107/74; PULSE 81; RESP 21; O2SAT 100
[2024-10-27 08:38] VITALS: BP 112/77; PULSE 70; RESP 21; O2SAT 100
[2024-10-27 08:48] VITALS: BP 117/79; PULSE 67; RESP 18; O2SAT 100
== END 2024-10-27 08:51 | disposition home or self-care (01) ==
PROVIDERS: Anesthesiology; PCP Family Medicine; Visit Provider Surgery
PROC: 0DJD8ZZ Inspection of Lower Intestinal Tract, Via Natural or Artificial Opening Endoscopic (ICD-10-PCS; CPT 45378; principal; 2024-10-27 08:00)
DX: Z12.11 Encounter for screening for malignant neoplasm of colon (principal)
CPT/HCPCS: 45378; J2704; J7120